=== PATIENT | male | born 1960 | race Two or more races ===

== ENCOUNTER 2021-02-15 01:26 | Inpatient (IN) | payer OTHER, SELFPAY ==
[2021-02-15] VITALS (13 sets, daily range): BP systolic 114–151; BP diastolic 61–85; PULSE 50–125; RESP 18–22; TEMP 36.1–38.1; O2SAT 91–98; BMI 30.4
--- NOTE | ~2021-02-15 | XR_ITS ---
EXAMINATION: XR CHEST CLINICAL INFORMATION: Dyspnea COMPARISON: 02/05/2019 TECHNIQUE: Frontal view of the chest was obtained. FINDINGS: The lungs are clear with no focal consolidation. No evidence of pneumothorax, pulmonary edema, or pleural effusions. The cardiomediastinal silhouette is unremarkable. No acute osseous findings. XR/XR chest 1V IMPRESSION: No acute cardiopulmonary findings.
--- NOTE | 2021-02-15 01:43 | ECG_ITS ---
Test Reason : DYSPNEA Blood Pressure : / mmHG Vent. Rate : 106 BPM Atrial Rate : 106 BPM P-R Int : 132 ms QRS Dur : 104 ms QT Int : 336 ms P-R-T Axes : 027 -45 074 degrees QTc Int : 446 ms Sinus tachycardia Intra-ventricular conduction delay Left anterior fascicular block Abnormal ECG When compared with ECG of 05-FEB-2019 03:59, Vent. rate has increased BY 45 BPM T wave inversion less evident in Lateral leads QRS duration has increased Referred By: Lalita Fairchild Electronically Signed By:RAYMUNDO ARAUJO MD
--- NOTE | 2021-02-15 02:01 | ED_ITS ---
HPI - Fever General Chief Complaint: Dyspnea Stated Complaint: Covid like Time Seen by Provider: 02/15/21 01:47 Source: patient and family Mode of arrival: ambulatory Limitations: no limitations History of Present Illness MD elicited complaint: fever and other (cough, body aches, wheezing) Pertinent past history: diabetes Onset (ago): day(s) (started on ) Context: recent antibiotic use (started on zpak on as well as prednisone taper at home from PCP) Exacerbating factors: exertion Relieving factors: acetaminophen Associated symptoms: chills, myalgias, cough, nausea and dysuria Treatments prior to arrival fever: acetaminophen Related Data Allergies Allergy/AdvReac Type Severity Reaction Status Date / Time No Known Allergies Allergy Verified 02/15/21 01:44 [No Known Allergies*] Review of Systems Review of Systems: Constitutional : No Weight loss, pos Fever, pos Chills, pos Fatigue, pos Malaise ENT/Mouth : No sore throat, No Rhinorrhea Eyes: No Eye Pain, No Swelling, No Redness Cardiovascular : No Chest Pain, pos SOB, No Dyspnea on Exertion, No Orthopnea, No Edema, No Palpitations Respiratory : pos Cough, No Sputum, pos Wheezing Gastrointestinal : pos Nausea, No Vomiting, No Diarrhea, No Constipation, No abdominal Pain, No Hematochezia, No Melena Genitourinary : pos Dysuria, No Urinary Frequency, No Hematuria, Musculoskeletal : No joint pain, No Myalgias, No Joint Swelling Skin : No Skin Lesions, No rash Neuro : pos Weakness, No Numbness, No Dizziness, No Headache Psych : No Anxiety/Panic, No Depression Heme/Lymph: No Bruising, No Bleeding,No Lymphadenopathy Endocrine : No Polyuria, No Polydipsia All other systems reviewed and are negative [facility] Past Medical History Attestation statement: The following information was validated with the patient. Medical History Asthma Diabetes High cholesterol Hypertension Pneumonia Social History Social History (Updated 02/15/21 @ 02:19 by Lalita Fairchild DO) Alcohol intake: never Patient Tobacco Use Status: Never used Tobacco Use of substances other than those prescribed or required for medical reasons: No Advance Directives: No Physical Exam Vital Signs: Vital Signs: Last Vital Signs Temp 100.1 F 02/15/21 02:23 Pulse 104 H 02/15/21 02:23 Resp 20 02/15/21 02:23 BP 119/78 02/15/21 02:23 Pulse Ox 91 L 02/15/21 03:32 Body Mass Index 30.4 Appearance: Alert. Oriented X3. Mild acute distress. Eyes: Pupils equal, round and reactive to light. ENT: Pharynx normal. Neck: Normal inspection. Neck supple. CVS: tachycardic heart rate and rhythm. Pulses normal. Respiratory: Mild respiratory distress tachypnea and retractions. Breath sounds diminished with diffuse end exp wheezing Abdomen: Soft and non-tender. Skin: Skin warm and dry. Normal skin color. Normal skin turgor. Extremities: No lower extremity edema. No calf ttp Neuro: Oriented X 3. No motor deficit. No sensory deficit. Course Course Course Narrative: 91% on RA already on steroids and zpak, up to 96% on 2L NC given failure of outpatient treatment of asthma with RSV will admit for further management after 5mg neb patient still wheezing + UA given rocephin empirically MDM - Fever MDM Narrative Medical decision making narrative: 61 yo male with DM, HTN, asthma not feeling well with fevers up to 103, cough, wheezing, he has been vaccinated x 2 with Moderna. PCP started him on prednisone and zpak last but overall he is not improving. At this time labs, cultures, lactic acid, CXR, FLU/COVID/RSV ordered, empiric ceftriaxone. Dispo per results and findings. Lab Data Result diagrams: 02/15/21 02:10 02/15/21 02:10 Labs: Lab Results 02/15/21 02/15/21 02/15/21 Range/Units 01:36 02:10 02:10 WBC 8.1 (4.8-10.8) X10*3/uL RBC 5.16 (4.60-5.80) X10*6/uL Hgb 16.1 (14.0-18.0) g/dl Hct 46.0 (42-52) % MCV 89.1 (80-98) fL MCH 31.2 (27.0-33.0) pg MCHC 35.0 (31.0-36.0) g/dl RDW 12.0 (11.0-16.0) % Plt Count 150 L (160-400) X10*3/uL MPV 9.2 L (9.4-12.4) fL Immature Gran % (Auto) 0.5 H (0.0-0.4) % Neut % (Auto) 91.5 H (45-73) % Lymph % (Auto) 6.2 L (20-40) % [place] % (Auto) 1.5 L (2-11) % Eos % (Auto) 0.1 (0-4) % Baso % (Auto) 0.2 (0-2) % Lymph # (Auto) 0.5 L (1.2-4.9) X10*3/uL [place] # (Auto) 0.1 (0.1-1.2) X10*3/uL Eos # (Auto) 0.0 (0.0-0.4) X10*3/uL Baso # (Auto) 0.0 (0.0-0.2) X10*3/uL Abs Immat Gran (auto) 0.04 H (0.00-0.03) X10*3/uL Absolute Neuts (auto) 7.4 (2.0-8.3) X10*3/uL Absolute Nucleated RBC 0.000 (0.0-0.012) X10*3/uL Nucleated RBC % (auto) 0.0 (0.0-0.2) /100WBC Smear Tech's Comments VERIFIED Sodium Cancelled Potassium Cancelled Chloride Cancelled Carbon Dioxide Cancelled Anion Gap Cancelled BUN Cancelled Creatinine Cancelled Estim Creat Clear Calc Cancelled Estimated GFR Cancelled Random Glucose Cancelled Lactic Acid (0.5-2.0) mmol/L Calcium Cancelled Magnesium (1.6-2.6) mg/dL Total Bilirubin (0.0-1.0) mg/dL Direct Bilirubin (0.0-0.5) mg/dL AST (5-37) U/L ALT (0-40) U/L Alkaline Phosphatase (39-117) U/L Troponin I High Sens (<3.5-35.0) ng/L B-Natriuretic Peptide (<100) pg/mL Total Protein (6.5-8.0) g/dL Albumin (3.5-5.0) g/dL Urine Color Urine Appearance Urine pH (5.0-8.0) Ur Specific [place] (1.005-1.025) Urine Protein (NEG-TRACE) MG/DL Urine Glucose (UA) (NEG) MG/DL Urine Ketones (NEG) MG/DL Urine Blood (NEG) Urine Nitrite (NEG) Ur Leukocyte Esterase (NEG) Urine RBC (0) /HPF Urine WBC (0-4) /HPF Ur Squamous Epith Cells /LPF Urine Bacteria /LPF Coronavirus (PCR) NEGATIVE (Negative) Influenza Type A (PCR) NEGATIVE (Negative) Influenza Type B (PCR) NEGATIVE (Negative) RSV RNA Qual (PCR) POSITIVE A (Negative) 02/15/21 02/15/21 02/15/21 Range/Units 02:10 02:10 02:10 WBC (4.8-10.8) X10*3/uL RBC (4.60-5.80) X10*6/uL Hgb (14.0-18.0) g/dl Hct (42-52) % MCV (80-98) fL MCH (27.0-33.0) pg MCHC (31.0-36.0) g/dl RDW (11.0-16.0) % Plt Count (160-400) X10*3/uL MPV (9.4-12.4) fL Immature Gran % (Auto) (0.0-0.4) % Neut % (Auto) (45-73) % Lymph % (Auto) (20-40) % [place] % (Auto) (2-11) % Eos % (Auto) (0-4) % Baso % (Auto) (0-2) % Lymph # (Auto) (1.2-4.9) X10*3/uL [place] # (Auto) (0.1-1.2) X10*3/uL Eos # (Auto) (0.0-0.4) X10*3/uL Baso # (Auto) (0.0-0.2) X10*3/uL Abs Immat Gran (auto) (0.00-0.03) X10*3/uL Absolute Neuts (auto) (2.0-8.3) X10*3/uL Absolute Nucleated RBC (0.0-0.012) X10*3/uL Nucleated RBC % (auto) (0.0-0.2) /100WBC Smear Tech's Comments Sodium 137 Potassium 3.5 Chloride 100 Carbon Dioxide 25 Anion Gap 16 BUN 15 Creatinine 1.17 Estim Creat Clear Calc 67.1 Estimated GFR > 60 Random Glucose 226 H Lactic Acid 2.0 (0.5-2.0) mmol/L Calcium 9.0 Magnesium 1.4 L* (1.6-2.6) mg/dL Total Bilirubin 2.3 H (0.0-1.0) mg/dL Direct Bilirubin 0.5 (0.0-0.5) mg/dL AST 18 (5-37) U/L ALT 34 (0-40) U/L Alkaline Phosphatase 84 (39-117) U/L Troponin I High Sens 7.8 (<3.5-35.0) ng/L B-Natriuretic Peptide 39 (<100) pg/mL Total Protein 6.8 (6.5-8.0) g/dL Albumin 4.1 (3.5-5.0) g/dL Urine Color Urine Appearance Urine pH (5.0-8.0) Ur Specific [place] (1.005-1.025) Urine Protein (NEG-TRACE) MG/DL Urine Glucose (UA) (NEG) MG/DL Urine Ketones (NEG) MG/DL Urine Blood (NEG) Urine Nitrite (NEG) Ur Leukocyte Esterase (NEG) Urine RBC (0) /HPF Urine WBC (0-4) /HPF Ur Squamous Epith Cells /LPF Urine Bacteria /LPF Coronavirus (PCR) (Negative) Influenza Type A (PCR) (Negative) Influenza Type B (PCR) (Negative) RSV RNA Qual (PCR) (Negative) 02/15/21 Range/Units 02:24 WBC (4.8-10.8) X10*3/uL RBC (4.60-5.80) X10*6/uL Hgb (14.0-18.0) g/dl Hct (42-52) % MCV (80-98) fL MCH (27.0-33.0) pg MCHC (31.0-36.0) g/dl RDW (11.0-16.0) % Plt Count (160-400) X10*3/uL MPV (9.4-12.4) fL Immature Gran % (Auto) (0.0-0.4) % Neut % (Auto) (45-73) % Lymph % (Auto) (20-40) % [place] % (Auto) (2-11) % Eos % (Auto) (0-4) % Baso % (Auto) (0-2) % Lymph # (Auto) (1.2-4.9) X10*3/uL [place] # (Auto) (0.1-1.2) X10*3/uL Eos # (Auto) (0.0-0.4) X10*3/uL Baso # (Auto) (0.0-0.2) X10*3/uL Abs Immat Gran (auto) (0.00-0.03) X10*3/uL Absolute Neuts (auto) (2.0-8.3) X10*3/uL Absolute Nucleated RBC (0.0-0.012) X10*3/uL Nucleated RBC % (auto) (0.0-0.2) /100WBC Smear Tech's Comments Sodium Potassium Chloride Carbon Dioxide Anion Gap BUN Creatinine Estim Creat Clear Calc Estimated GFR Random Glucose Lactic Acid (0.5-2.0) mmol/L Calcium Magnesium (1.6-2.6) mg/dL Total Bilirubin (0.0-1.0) mg/dL Direct Bilirubin (0.0-0.5) mg/dL AST (5-37) U/L ALT (0-40) U/L Alkaline Phosphatase (39-117) U/L Troponin I High Sens (<3.5-35.0) ng/L B-Natriuretic Peptide (<100) pg/mL Total Protein (6.5-8.0) g/dL Albumin (3.5-5.0) g/dL Urine Color YELLOW Urine Appearance CLEAR Urine pH 7.0 (5.0-8.0) Ur Specific [place] 1.020 (1.005-1.025) Urine Protein 1+ H (NEG-TRACE) MG/DL Urine Glucose (UA) 100 H (NEG) MG/DL Urine Ketones NEG (NEG) MG/DL Urine Blood NEG (NEG) Urine Nitrite POS H (NEG) Ur Leukocyte Esterase TRACE H (NEG) Urine RBC 1-4 (0) /HPF Urine WBC 30-49 H (0-4) /HPF Ur Squamous Epith Cells TRACE /LPF Urine Bacteria 4+ /LPF Coronavirus (PCR) (Negative) Influenza Type A (PCR) (Negative) Influenza Type B (PCR) (Negative) RSV RNA Qual (PCR) (Negative) ECG Data ECG #1: Attestation: I personally reviewed and interpreted this ECG as follows: ECG interpretation date: 02/15/21 ECG interpretation time: 02:01 Interpretation: Rate: 106 Rhythm: sinus tachycardia [place]: left, LVH Normal P waves. Normal GAVI. Normal QRS complex. ST T wave : inverted I and aVL, no SENA qTC: normal prior studies: no acute ischemia The study has been interpreted contemporaneously by me. . Critical Care Time Critical Care Time Critical Care Time: Yes Total Critical Care Time: 45 Attestation: 5mg neb, IV steroids, O2 supplementation, admission to hospital, reassessments, repletion of magnesium I attest to this time spent taking care of the patient Discharge Plan Discharge Clinical Impression: RSV (respiratory syncytial virus infection), Hypomagnesemia, Acute UTI Fever Qualifiers: Fever type: unspecified Qualified Code(s): R50.9 - Fever, unspecified Asthma Qualifiers: Asthma severity: moderate Asthma persistence: persistent Asthma complication type: with acute exacerbation Qualified Code(s): J45.41 - Moderate persistent asthma with (acute) exacerbation Patient Disposition: Admitted As Inpatient
[2021-02-15] MEDS: cefTRIAXone sodium 1 GM in 0.9 % Sodium Chloride 50 ML IV ×2 (02:15→19:54)
[2021-02-15] MEDS: dexAMETHasone sod phosphate 4 MG/ML VIAL 6 MG IVPUSH (02:15)
[2021-02-15] MEDS: Ibuprofen 600 MG TABLET PO (02:15)
[2021-02-15] MEDS: 0.9 % Sodium Chloride 500 ML IV (02:16)
[2021-02-15 02:18] LABS: Basophils Percent Auto 0.2 % (0-2); Eosinophils Percent Auto 0.1 % (0-4); Hemoglobin 16.1 g/dl (14.0-18.0); Imm Gran Abs Auto 0.04 X10*3/uL (0.00-0.03); Imm Gran Pct Auto 0.5 % (0.0-0.4); Lymphocytes Absolute Auto 0.5 X10*3/uL (1.2-4.9); Lymphocytes Percent Auto 6.2 % (20-40); MANUAL DIFF FLAG SCAN; Mean Corpuscular Hemoglobin 31.2 pg (27.0-33.0); Mean Corpuscular Volume 89.1 fL (80-98); Mean Platelet Volume 9.2 fL (9.4-12.4); Monocytes Absolute Auto 0.1 X10*3/uL (0.1-1.2); Monocytes Percent Auto 1.5 % (2-11); Neutrophils Absolute Auto 7.4 X10*3/uL (2.0-8.3); Neutrophils Percent Auto 91.5 % (45-73); Platelet Count 150 X10*3/uL (160-400); Red Blood Count 5.16 X10*6/uL (4.60-5.80); SCAN SMEAR FLAG 1; White Blood Count 8.1 X10*3/uL (4.8-10.8)
[2021-02-15] MEDS: Albuterol Sulfate (0.083%) 2.5 MG/3 ML VIAL.NEB 5 MG INHALE (02:19)
[2021-02-15 02:34] LABS: Influenza A PCR NEGATIVE (Negative); Influenza B PCR NEGATIVE (Negative); Resp Syncy Virus RNA Qual PCR POSITIVE (Negative); SARS COV2 PCR INHOUSE NEGATIVE (Negative)
[2021-02-15 02:35] LABS: SLIDE REVIEW VERIFIED
[2021-02-15 02:44] LABS: B Type Natriuretic Peptide 39 pg/mL (<100); Troponin-I High Sensitivity 7.8 ng/L (<3.5-35.0)
[2021-02-15 03:00] LABS: Alanine Aminotransferase 34 U/L (0-40); Albumin Level 4.1 g/dL (3.5-5.0); Alkaline Phosphatase 84 U/L (39-117); Anion Gap 16 (12-20); Aspartate Amino Transferase 18 U/L (5-37); Bilirubin Direct 0.5 mg/dL (0.0-0.5); Bilirubin Total 2.3 mg/dL (0.0-1.0); Blood Urea Nitrogen 15 mg/dL (9-16); Carbon Dioxide 25 mmol/L (22-29); Chloride 100 mmol/L (96-108); Creatinine Clr Calc Pharmacy 67.1; Estimated Glomerular Filt Rate > 60; Glucose Random 226 mg/dL (60-115); Magnesium 1.4 mg/dL (1.6-2.6); Potassium 3.5 mmol/L (3.3-5.1); Sodium 137 mmol/L (135-145); Total Protein 6.8 g/dL (6.5-8.0)
[2021-02-15 03:22] LABS: Appearance Urine CLEAR; Color Urine YELLOW; Glucose Urine UA 100 MG/DL (NEG); Leukocyte Esterase Urine TRACE (NEG); Nitrite Urine POS (NEG); UACC Culture Trigger YES; Urine Blood NEG (NEG); Urine Ketones NEG (NEG); Urine Protein 1+ MG/DL (NEG-TRACE)
[2021-02-15 03:28] LABS: WBC Urine 30-49 /HPF (0-4)
[2021-02-15 03:29] LABS: Bacteria Urine 4+ /LPF; Squamous Epithelial Cell Urine TRACE /LPF
--- NOTE | 2021-02-15 03:32 | PC.NURSE ---
patient is 91% on room air per dr. rand, placed on 2L of o2 by dr. rand
[2021-02-15] MEDS: Magnesium Sulfate/H2O 2 GM/50 ML PIGGYBACK IV (03:43)
--- NOTE | 2021-02-15 04:13 | PM.IMHP ---
History of Present Illness Date of Service: 02/15/21 Chief Complaint: Shortness of breath 59-year-old male with a past medical history of hypertension, asthma presented to the hospital with a chief complaint of fevers. Patient reports that for the past 1 week he has been having shortness of breath and has seen the PCP who gave him prednisone taper along with azithromycin. Patient reports that he did finished a course of Z-Carlito but he still did not feel well and has been having low-grade fevers and chills. Also complains of shortness of breath and dry cough. Over the past couple days patient also complains of having burning urination. Denies any abdominal pain. Denies any blood in the urine. Denies any chest pain or palpitations. Review of all other systems is negative except mentioned above ER course: Per ER team patient noted of coarse breath sounds; chest x-ray showed no acute findings; urinalysis abnormal consistent with UTI; patient was given nebulizations and steroids; patient came back positive for RSV; COVID-19 negative; EKG nonischemic; troponin negative. [facility] Medical History Asthma Diabetes High cholesterol Hypertension Pneumonia Pertinent family history: Reviewed, denies any chronic medical problems Social History (Updated 02/15/21 @ 02:19 by Lalita Fairchild DO) Alcohol intake: never Patient Tobacco Use Status: Never used Tobacco Use of substances other than those prescribed or required for medical reasons: No Advance Directives: No Meds Allergies Allergy/AdvReac Type Severity Reaction Status Date / Time No Known Allergies Allergy Verified 02/15/21 01:44 [No Known Allergies*] Active Medications: Current Medications Acetaminophen (Acetaminophen 325 Mg Tablet) 650 mg PO Q6H PRN PRN Reason: Pain, Mild (Pain Scale 1-3) Albuterol/Ipratropium (Albuterol/Iprat 2.5/0.5mg 3 Ml Ampul.Neb) 3 ml INHALE RQ4H PRN PRN Reason: Shortness of Breath/Wheezing Albuterol/Ipratropium (Albuterol/Iprat 2.5/0.5mg 3 Ml Ampul.Neb) 3 ml INHALE Q6H NEAL Azithromycin (Azithromycin 500 Mg Tablet) 500 mg PO Q24H NEAL Enoxaparin Sodium (Enoxaparin Sodium 40 Mg/0.4 Ml Syringe) 40 mg SUBCUT Q24H [facility] Magnesium Sulfate (Magnesium Sulfate/H2o) 2 gm in 50 mls @ 25 mls/hr IV ONCE ONE Stop: 02/15/21 04:59 Last Admin: 02/15/21 03:43 Dose: 25 mls/hr Documented by: Ceftriaxone Sodium 1 gm/ (Sodium Chloride) 50 mls @ 100 mls/hr IV Q24H [facility] Magnesium Sulfate/Dextrose (Magnesium Sulfate/D5w) 1 gm in 100 mls @ 100 mls/hr IV ONCE ONE Stop: 02/15/21 05:06 Melatonin (Melatonin 3 Mg Tablet) 6 mg PO BEDTIME PRN PRN Reason: Insomnia Methylprednisolone Sodium Succinate (Methylprednisolone Sod Succ 40 Mg/Ml Vial) 40 mg IVPUSH Q6H [facility] Pharmacy Consult (Consult Rx Perform Med Rec) 1 each MISCELLANE ONCE PRN PRN Reason: Consult order Senna (Sennosides 8.6 Mg Tablet) 17.2 mg PO BEDTIME PRN PRN Reason: Constipation Sodium Chloride (0.9 % Sodium Chloride Flush 3 Ml Syringe) 3 ml IVFLUSH QSHIFT [facility] Physical Exam Vital Signs and Narrative: Vital Signs: Last Vital Signs Temp 100.1 F 02/15/21 02:23 Pulse 104 H 02/15/21 02:23 Resp 20 02/15/21 02:23 BP 119/78 02/15/21 02:23 Pulse Ox 91 L 02/15/21 03:32 Body Mass Index 30.4 Gen: Appears be in no acute distress HEENT: NCAT, Moist mucosa. Pulmonary: Coarse breath sounds, fair air entry CVS: Normal S1-S2 Abdomen: BS+, Soft, Nontender; no CVA tenderness Extremities: Warm well perfused; Neuro: Alert and awake. Results Labs CBC and Chem 7: 02/15/21 02:10 02/15/21 02:10 Labs: Laboratory Results - last 24 hr 02/15/21 02/15/21 02/15/21 01:36 02:10 02:10 MCV 89.1 MCH 31.2 MCHC 35.0 RDW 12.0 Plt Count 150 L MPV 9.2 L Immature Gran % (Auto) 0.5 H Neut % (Auto) 91.5 H Lymph % (Auto) 6.2 L [place] % (Auto) 1.5 L Eos % (Auto) 0.1 Baso % (Auto) 0.2 Lymph # (Auto) 0.5 L [place] # (Auto) 0.1 Eos # (Auto) 0.0 Baso # (Auto) 0.0 Abs Immat Gran (auto) 0.04 H Absolute Neuts (auto) 7.4 Absolute Nucleated RBC 0.000 Nucleated RBC % (auto) 0.0 Smear Tech's Comments VERIFIED Anion Gap Cancelled Estim Creat Clear Calc Cancelled Estimated GFR Cancelled Random Glucose Cancelled Lactic Acid Calcium Cancelled Magnesium Total Bilirubin Direct Bilirubin AST ALT Alkaline Phosphatase Troponin I High Sens B-Natriuretic Peptide Total Protein Albumin Urine Color Urine Appearance Urine pH Ur Specific [place] Urine Protein Urine Glucose (UA) Urine Ketones Urine Blood Urine Nitrite Ur Leukocyte Esterase Urine RBC Urine WBC Ur Squamous Epith Cells Urine Bacteria Coronavirus (PCR) NEGATIVE Influenza Type A (PCR) NEGATIVE Influenza Type B (PCR) NEGATIVE RSV RNA Qual (PCR) POSITIVE A 02/15/21 02/15/21 02/15/21 02:10 02:10 02:10 MCV MCH MCHC RDW Plt Count MPV Immature Gran % (Auto) Neut % (Auto) Lymph % (Auto) [place] % (Auto) Eos % (Auto) Baso % (Auto) Lymph # (Auto) [place] # (Auto) Eos # (Auto) Baso # (Auto) Abs Immat Gran (auto) Absolute Neuts (auto) Absolute Nucleated RBC Nucleated RBC % (auto) Smear Tech's Comments Anion Gap 16 Estim Creat Clear Calc 67.1 Estimated GFR > 60 Random Glucose 226 H Lactic Acid 2.0 Calcium 9.0 Magnesium 1.4 L* Total Bilirubin 2.3 H Direct Bilirubin 0.5 AST 18 ALT 34 Alkaline Phosphatase 84 Troponin I High Sens 7.8 B-Natriuretic Peptide 39 Total Protein 6.8 Albumin 4.1 Urine Color Urine Appearance Urine pH Ur Specific [place] Urine Protein Urine Glucose (UA) Urine Ketones Urine Blood Urine Nitrite Ur Leukocyte Esterase Urine RBC Urine WBC Ur Squamous Epith Cells Urine Bacteria Coronavirus (PCR) Influenza Type A (PCR) Influenza Type B (PCR) RSV RNA Qual (PCR) 02/15/21 02:24 MCV MCH MCHC RDW Plt Count MPV Immature Gran % (Auto) Neut % (Auto) Lymph % (Auto) [place] % (Auto) Eos % (Auto) Baso % (Auto) Lymph # (Auto) [place] # (Auto) Eos # (Auto) Baso # (Auto) Abs Immat Gran (auto) Absolute Neuts (auto) Absolute Nucleated RBC Nucleated RBC % (auto) Smear Tech's Comments Anion Gap Estim Creat Clear Calc Estimated GFR Random Glucose Lactic Acid Calcium Magnesium Total Bilirubin Direct Bilirubin AST ALT Alkaline Phosphatase Troponin I High Sens B-Natriuretic Peptide Total Protein Albumin Urine Color YELLOW Urine Appearance CLEAR Urine pH 7.0 Ur Specific [place] 1.020 Urine Protein 1+ H Urine Glucose (UA) 100 H Urine Ketones NEG Urine Blood NEG Urine Nitrite POS H Ur Leukocyte Esterase TRACE H Urine RBC 1-4 Urine WBC 30-49 H Ur Squamous Epith Cells TRACE Urine Bacteria 4+ Coronavirus (PCR) Influenza Type A (PCR) Influenza Type B (PCR) RSV RNA Qual (PCR) Imaging Radiologist's Impressions: Impressions Chest X-Ray 02/15/21 01:43 IMPRESSION: No acute cardiopulmonary findings. Assessment and Plan (1) RSV (respiratory syncytial virus infection): Status: Acute (2) Acute UTI: Status: Acute (3) Asthma: Qualifiers: Asthma complication type: with acute exacerbation Asthma persistence: persistent Asthma severity: moderate Qualified Code(s): J45.41 - Moderate persistent asthma with (acute) exacerbation Status: Acute (4) Hypomagnesemia: Status: Acute (5) Fever: Qualifiers: Fever type: unspecified Qualified Code(s): R50.9 - Fever, unspecified Status: Acute 59-year-old male with a past medical history of HTN, HLD, DM, Asthma presented to the hospital with a chief complaint of fevers/shortness of breath. Admitted for asthma exacerbation/UTI/RSV infection. Asthma exacerbation/RSV infection: Condition Solu-Medrol DuoNeb standing and p.r.n. Supportive care Doxycycline UTI: Continue ceftriaxone. Follow up cultures. Hypomagnesemia: Repleted DM: ISS +lantus 20U HTN/HLD: c/w home meds For all other chronic issues, home medications will be continued DVT prophylaxis: Lovenox Code status: Full code Quality Stroke Does the patient have a stroke diagnosis?: No VTE Prior VTE?: No VTE Risk Level:: Medical - moderate - high VTE Device Contraindication: Treatment Not Indicated VTE Drug Contraindication: N/A - Med Ordered
[2021-02-15 04:33] LABS: Troponin-I High Sensitivity 7.8 ng/L (<3.5-35.0)
[2021-02-15] MEDS: Benzonatate 100 MG CAPSULE PO ×2 (06:11→19:54)
[2021-02-15] MEDS: Enoxaparin Sodium 40 MG/0.4 ML SYRINGE SUBCUT (06:11)
[2021-02-15 07:11] LABS: Glucose, Whole Blood 280 mg/dL (60-115)
[2021-02-15] MEDS: Insulin Lispro 100 UNIT/ML 3 ML VIAL SUBCUT ×4 (07:15→19:53)
[2021-02-15] MEDS: 0.9 % Sodium Chloride Flush 3 ML SYRINGE IVFLUSH ×3 (07:16→19:54)
--- NOTE | 2021-02-15 07:20 | PC.NURSE ---
pt alert and oriented, skin appropriate for ethnicity, respirations even and unlabored but audible wheezing, pt reports chest tightness/pain at 6/10 especially when coughing, ns on the monitor, vs stable
--- NOTE | 2021-02-15 07:26 | PC.NURSE ---
report given to Kirsty ceballos on imc
[2021-02-15 08:11] LABS: Basophils Percent Auto 0.2 % (0-2); Hematocrit 44.3 % (42-52); Hemoglobin 15.5 g/dl (14.0-18.0); Imm Gran Abs Auto 0.08 X10*3/uL (0.00-0.03); Imm Gran Pct Auto 0.6 % (0.0-0.4); Lymphocytes Absolute Auto 0.4 X10*3/uL (1.2-4.9); Lymphocytes Percent Auto 3.1 % (20-40); MANUAL DIFF FLAG SCAN; Mean Corpuscular Hemoglobin 31.3 pg (27.0-33.0); Mean Corpuscular Volume 89.3 fL (80-98); Mean Platelet Volume 9.4 fL (9.4-12.4); Monocytes Absolute Auto 0.5 X10*3/uL (0.1-1.2); Monocytes Percent Auto 3.5 % (2-11); Neutrophils Absolute Auto 12.1 X10*3/uL (2.0-8.3); Neutrophils Percent Auto 92.6 % (45-73); Platelet Count 151 X10*3/uL (160-400); Red Blood Count 4.96 X10*6/uL (4.60-5.80); Red Cell Distribution Width 12.2 % (11.0-16.0); SCAN SMEAR FLAG 1
--- NOTE | 2021-02-15 08:28 | MHC.CM.PN ---
pt lives c his in their home. he reports that he is independent in his care. 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 pt denies the need for vna svcs at or. pt's can help him c any needs he may have. this will include a ride home at or. dc plan is home no svcs. cm to cont. to follow.
--- NOTE | 2021-02-15 08:33 | PHA.MEDREC ---
Pharmacy Consult ? Medication Reconciliation Pharmacy has completed the medication reconciliation. Spoke to the patient who stated he finished his azithromycin prescription on Tuesday 02/13 and is still taking the Prednisone taper. The patient also receives Xolair every 2 weeks, he is due next Saturday.
[2021-02-15 08:44] LABS: Anion Gap 15 (12-20); Blood Urea Nitrogen 15 mg/dL (9-16); Calcium 9.1 mg/dL (8.4-10.2); Carbon Dioxide 28 mmol/L (22-29); Chloride 98 mmol/L (96-108); Creatinine Clr Calc Pharmacy 58.6; Estimated Glomerular Filt Rate 54; Glucose Random 382 mg/dL (60-115); Potassium 4.7 mmol/L (3.3-5.1); Sodium 136 mmol/L (135-145)
[2021-02-15] MEDS: methylPREDNISolone Sod Succ 40 MG/ML VIAL IVPUSH ×3 (09:15→19:53)
[2021-02-15] MEDS: Albuterol/Iprat 2.5/0.5MG 3 ML AMPUL.NEB INHALE ×2 (10:47→17:42)
[2021-02-15 11:06] LABS: Glucose, Whole Blood 286 mg/dL (60-115)
[2021-02-15 16:05] LABS: Glucose, Whole Blood 307 mg/dL (60-115)
[2021-02-15 19:39] LABS: Glucose, Whole Blood 351 mg/dL (60-115)
[2021-02-15] MEDS: Insulin Glargine,Hum.rec.anlog 100 UNIT/ML 10 ML VIAL 20 UNIT SUBCUT (19:53)
[2021-02-15] MEDS: Acetaminophen 325 MG TABLET 650 MG PO (19:53)
[2021-02-16] VITALS (10 sets, daily range): BP systolic 125–162; BP diastolic 67–84; PULSE 63–101; RESP 18–20; TEMP 36.1–37.2; O2SAT 94–99
[2021-02-16] MEDS: Albuterol/Iprat 2.5/0.5MG 3 ML AMPUL.NEB INHALE ×3 (00:16→17:59)
[2021-02-16] MEDS: methylPREDNISolone Sod Succ 40 MG/ML VIAL IVPUSH ×4 (05:58→21:27)
[2021-02-16] MEDS: Enoxaparin Sodium 40 MG/0.4 ML SYRINGE SUBCUT (05:58)
[2021-02-16 06:08] LABS: Hematocrit 42.2 % (42-52); Hemoglobin 14.9 g/dl (14.0-18.0); Mean Corpuscular HGB Conc 35.3 g/dl (31.0-36.0); Mean Corpuscular Hemoglobin 31.1 pg (27.0-33.0); Mean Corpuscular Volume 88.1 fL (80-98); Mean Platelet Volume 9.5 fL (9.4-12.4); Platelet Count 167 X10*3/uL (160-400); Red Blood Count 4.79 X10*6/uL (4.60-5.80); White Blood Count 19.6 X10*3/uL (4.8-10.8)
[2021-02-16] MEDS: Fluticasone/Vilanterol 200/25 BLST.W.DEV 1 PUFF INHALE (06:09)
[2021-02-16 06:30] LABS: Anion Gap 13 (12-20); Blood Urea Nitrogen 24 mg/dL (9-16); Carbon Dioxide 27 mmol/L (22-29); Chloride 100 mmol/L (96-108); Creatinine Clr Calc Pharmacy 80.2; Estimated Glomerular Filt Rate > 60; Glucose Fasting 296 mg/dL (60-99); Magnesium 2.4 mg/dL (1.6-2.6); Potassium 4.3 mmol/L (3.3-5.1); Sodium 136 mmol/L (135-145)
[2021-02-16 07:28] LABS: Glucose, Whole Blood 338 mg/dL (60-115)
[2021-02-16] MEDS: Insulin Lispro 100 UNIT/ML 3 ML VIAL SUBCUT ×7 (07:45→20:24)
[2021-02-16] MEDS: Atorvastatin Calcium 40 MG TABLET PO (07:46)
[2021-02-16] MEDS: Benzonatate 100 MG CAPSULE PO ×2 (07:46→21:33)
[2021-02-16] MEDS: Acetaminophen 325 MG TABLET 650 MG PO (07:46)
[2021-02-16] MEDS: lisinopriL 40 MG TABLET PO (07:46)
[2021-02-16] MEDS: 0.9 % Sodium Chloride Flush 3 ML SYRINGE IVFLUSH ×2 (07:47→16:42)
[2021-02-16] MEDS: Throat Lozenge, Medicated LOZENGE 1 LOZENGE MUCOUS MEM ×3 (10:40→21:33)
--- NOTE | 2021-02-16 11:28 | P.CDIC_ITS ---
CDI Concurrent Query Documentation Clarification: PHYSICIAN'S DOCUMENTATION REQUEST Date of Query: 02/16/21 1129 Patient Name: Edinson Marrero Admit Date: 02/15/21 Dear Doctor, A review of the medical record indicates additional documentation may be needed. Please review below and update the documentation accordingly. Risk Factors/Clinical Indicators/Treatments HR 125 RR 22 Temp 100.6 LA 2.0 WBC 19.6 SOB, chills, malaise, coughing, tachypnea, tachycardic. Admit for RSV and UTI IV Ceftriaxone, Doxycycline, Albuterol Patient just finished course of Z pack prior to arrival. Based on the above, could you clarify in the Progress Notes the appropriate diagnosis, if significant, that supports the above abnormalities and additional evaluation, monitoring, and/or treatment rendered: * Sepsis due to RSV and/or UTI * Not treating Sepsis * Labs indicate a diagnosis of (please specify) * Other (please specify) * Unable to determine Use of terms such as suspected, likely, concern for, or probable (associated with a specific diagnosis that is being evaluated, monitored, or treated as if it exists) are acceptable and can be coded in the inpatient setting, when documented at the time of discharge. Thank you, Wendy Boyer Extension: [phone] Please use your independent medical judgment in providing your response. THIS QUERY IS PART OF THE PERMANENT MEDICAL RECORD Provider Response: Sepsis
[2021-02-16 11:31] LABS: Glucose, Whole Blood 350 mg/dL (60-115)
--- NOTE | 2021-02-16 11:58 | P.PNIM_ITS ---
Subjective Subjective Date of Service: 02/16/21 Interval History: cc: sob interval history: a bit better, still weak and sob Cardiovascular Cardiovascular: Reports no additional cardiovascular complaints Respiratory Respiratory: Reports no additional respiratory complaints Physical Exam Vital Signs: Vital Signs: Last Vital Signs Temp 98.3 F 02/16/21 07:28 Pulse 100 02/16/21 07:46 Resp 19 02/16/21 07:28 BP 136/76 02/16/21 07:46 Pulse Ox 97 02/16/21 07:28 Body Mass Index 30.4 General: AO X 3, fatigued appearing Resp: wheezes bilateral, no accessory muscles used CVS: S1,S2,RRR GI: soft, non tender, non distended Neuro: motor grossly intact, alert Psych: appropriate affect, appropriate insight Objective Data Active Medications Acetaminophen (Acetaminophen 325 Mg Tablet) 650 mg PO Q6H PRN PRN Reason: Pain, Mild (Pain Scale 1-3) Last Admin: 02/16/21 07:46 Dose: 650 mg Documented by: GARRETT Albuterol/Ipratropium (Albuterol/Iprat 2.5/0.5mg 3 Ml Ampul.Neb) 3 ml INHALE RQ4H PRN PRN Reason: Shortness of Breath/Wheezing Albuterol/Ipratropium (Albuterol/Iprat 2.5/0.5mg 3 Ml Ampul.Neb) 3 ml INHALE R Q6H [facility] Last Admin: 02/16/21 06:06 Dose: 3 ml Documented by: JEWEL Atorvastatin Calcium (Atorvastatin Calcium 40 Mg Tablet) 40 mg PO DAILY [facility] Last Admin: 02/16/21 07:46 Dose: 40 mg Documented by: GARRETT Benzocaine (Throat Lozenge, Medicated Lozenge) 1 lozenge MUCOUS MEM Q2H PRN PRN Reason: Sore Throat Last Admin: 02/16/21 10:40 Dose: 1 lozenge Documented by: GARRETT Benzonatate (Benzonatate 100 Mg Capsule) 100 mg PO TID PRN PRN Reason: Cough Last Admin: 02/16/21 07:46 Dose: 100 mg Documented by: GARRETT Dextrose (Dextrose 50 % 25 Gm/50 Ml Vial) 25 gm IVPUSH Q15M PRN; Protocol PRN Reason: per Hypoglycemia Standing Ord. Enoxaparin Sodium (Enoxaparin Sodium 40 Mg/0.4 Ml Syringe) 40 mg SUBCUT Q24H [facility] Last Admin: 02/16/21 05:58 Dose: 40 mg Documented by: RALPH Fluticasone/Vilanterol (Fluticasone/Vilanterol 200/25 Blst.W.Dev) 1 puff INHALE DAILY [facility] Last Admin: 02/16/21 06:09 Dose: 1 puff Documented by: JEWEL Glucose (Glucose Gel 15 Gm Gel..Gram.) 15 gm PO Q15M PRN; Protocol PRN Reason: per Hypoglycemia Standing Ord. Ceftriaxone Sodium 1 gm/ (Sodium Chloride) 50 mls @ 100 mls/hr IV Q24H [facility] Last Infusion: 02/15/21 20:39 Dose: 0 mls/hr Documented by: RALPH Insulin Glargine (Insulin Glargine,Hum.Rec.Anlog 100 Unit/Ml 10 Ml Vial) 35 unit SUBCUT BEDTIME [facility] Insulin Human Lispro (Insulin Lispro 100 Unit/Ml 3 Ml Vial) 0 unit SUBCUT QIDACHS [facility]; Protocol Last Admin: 02/16/21 11:44 Dose: 8 unit Documented by: GARRETT Insulin Human Lispro (Insulin Lispro 100 Unit/Ml 3 Ml Vial) 5 unit SUBCUT QIDACHS [facility] Last Admin: 02/16/21 11:44 Dose: 5 unit Documented by: GARRETT Lisinopril (Lisinopril 40 Mg Tablet) 40 mg PO DAILY [facility]; Protocol Last Admin: 02/16/21 07:46 Dose: 40 mg Documented by: GARRETT Melatonin (Melatonin 3 Mg Tablet) 6 mg PO BEDTIME PRN PRN Reason: Insomnia Methylprednisolone Sodium Succinate (Methylprednisolone Sod Succ 40 Mg/Ml Vial) 40 mg IVPUSH Q6H [facility] Last Admin: 02/16/21 10:40 Dose: 40 mg Documented by: GARRETT Pharmacy Consult (Consult Rx Perform Med Rec) 1 each MISCELLANE ONCE PRN PRN Reason: Consult order Senna (Sennosides 8.6 Mg Tablet) 17.2 mg PO BEDTIME PRN PRN Reason: Constipation Sodium Chloride (0.9 % Sodium Chloride Flush 3 Ml Syringe) 3 ml IVFLUSH QSHIFT [facility] Last Admin: 02/16/21 07:47 Dose: 3 ml Documented by: GARRETT Labs CBC & Chem 7: 02/16/21 05:52 02/16/21 05:52 Labs: Laboratory Results - last 24 hr 02/15/21 02/15/21 02/16/21 15:58 19:35 05:52 MCV 88.1 MCH 31.1 MCHC 35.3 RDW 12.0 Plt Count 167 MPV 9.5 Absolute Nucleated RBC 0.000 Nucleated RBC % (auto) 0.0 Anion Gap Estim Creat Clear Calc Estimated GFR POC Glucose 307 H 351 H* Fasting Glucose Calcium Magnesium 02/16/21 02/16/21 02/16/21 05:52 07:23 11:27 MCV MCH MCHC RDW Plt Count MPV Absolute Nucleated RBC Nucleated RBC % (auto) Anion Gap 13 Estim Creat Clear Calc 80.2 Estimated GFR > 60 POC Glucose 338 H 350 H* Fasting Glucose 296 H Calcium 9.0 Magnesium 2.4 Microbiology Microbiology Results: Microbiology 02/15/21 Unknown Urine Culture - Preliminary Urine clean catch - Urine silverio top Gram negative neha 02/15/21 02:10 Blood Culture - Preliminary Blood - Venous No growth after 24 hours. 02/15/21 02:10 Blood Culture - Preliminary Blood - Venous No growth after 24 hours. Assessment and Plan (1) RSV (respiratory syncytial virus infection): Status: Acute (2) Asthma: Status: Acute Assessment and Plan: 61M presented sob sepsis present on admission due to UTI and RSV complicated by acute exacerbation of mild intermittent asthma continue steroids, bronchodilators breo rocephin, follow up cultures - urine growing gnr ? underlying BPH - outpatient follow up DM with hyperglycemia basal bolus insulin monitor poc htn lisinpril hld statin dvt prohpylaxis - lovenox Quality Stroke Does the patient have a stroke diagnosis?: No VTE Prior VTE?: No VTE Risk Level:: Medical - moderate - high VTE Device Contraindication: Treatment Not Indicated VTE Drug Contraindication: N/A - Med Ordered
[2021-02-16 16:10] LABS: Glucose, Whole Blood 327 mg/dL (60-115)
[2021-02-16 20:00] LABS: Glucose, Whole Blood 302 mg/dL (60-115)
[2021-02-16] MEDS: Insulin Glargine,Hum.rec.anlog 100 UNIT/ML 10 ML VIAL 35 UNIT SUBCUT (20:24)
[2021-02-16] MEDS: cefTRIAXone sodium 1 GM in 0.9 % Sodium Chloride 50 ML IV (21:27)
[2021-02-17] VITALS (10 sets, daily range): BP systolic 137–163; BP diastolic 63–88; PULSE 60–88; RESP 17–20; TEMP 36.3–37.2; O2SAT 94–98
[2021-02-17] MEDS: Albuterol/Iprat 2.5/0.5MG 3 ML AMPUL.NEB INHALE ×2 (00:08→07:36)
[2021-02-17] MEDS: 0.9 % Sodium Chloride Flush 3 ML SYRINGE IVFLUSH ×4 (00:54→20:34)
[2021-02-17] MEDS: Enoxaparin Sodium 40 MG/0.4 ML SYRINGE SUBCUT (04:54)
[2021-02-17] MEDS: Acetaminophen 325 MG TABLET 650 MG PO (04:55)
[2021-02-17] MEDS: methylPREDNISolone Sod Succ 40 MG/ML VIAL IVPUSH ×4 (04:56→20:33)
[2021-02-17 07:21] LABS: Glucose, Whole Blood 297 mg/dL (60-115)
[2021-02-17] MEDS: Fluticasone/Vilanterol 200/25 BLST.W.DEV 1 PUFF INHALE (07:36)
[2021-02-17 07:47] LABS: Alanine Aminotransferase 21 U/L (0-40); Albumin Level 3.7 g/dL (3.5-5.0); Alkaline Phosphatase 76 U/L (39-117); Aspartate Amino Transferase 11 U/L (5-37); Bilirubin Direct 0.4 mg/dL (0.0-0.5); Total Protein 6.2 g/dL (6.5-8.0)
[2021-02-17] MEDS: Insulin Lispro 100 UNIT/ML 3 ML VIAL SUBCUT ×8 (08:10→20:33)
[2021-02-17] MEDS: Atorvastatin Calcium 40 MG TABLET PO (08:11)
[2021-02-17] MEDS: lisinopriL 40 MG TABLET PO (08:11)
[2021-02-17] MEDS: Benzonatate 100 MG CAPSULE PO (08:13)
[2021-02-17 11:27] LABS: Glucose, Whole Blood 346 mg/dL (60-115)
--- NOTE | 2021-02-17 12:11 | P.PNIM_ITS ---
Subjective Subjective Date of Service: 02/17/21 Interval History: cc: sob interval history: continues to feel a bit better, still weak and sob Cardiovascular Cardiovascular: Reports no additional cardiovascular complaints Respiratory Respiratory: Reports no additional respiratory complaints Physical Exam Vital Signs: Vital Signs: Last Vital Signs Temp 98.5 F 02/17/21 07:13 Pulse 88 02/17/21 08:11 Resp 17 02/17/21 07:13 BP 146/77 H 02/17/21 08:11 Pulse Ox 95 02/17/21 07:13 Body Mass Index 30.4 General: AO X 3, fatigued appearing Resp:? wheezes bilateral, no accessory muscles used CVS: S1,S2,RRR GI: soft, non tender, non distended Neuro:? motor grossly intact, alert Psych: appropriate affect, appropriate insight? Objective Data Active Medications Acetaminophen (Acetaminophen 325 Mg Tablet) 650 mg PO Q6H PRN PRN Reason: Pain, Mild (Pain Scale 1-3) Last Admin: 02/17/21 04:55 Dose: 650 mg Documented by: FLOR Albuterol/Ipratropium (Albuterol/Iprat 2.5/0.5mg 3 Ml Ampul.Neb) 3 ml INHALE RQ4H PRN PRN Reason: Shortness of Breath/Wheezing Albuterol/Ipratropium (Albuterol/Iprat 2.5/0.5mg 3 Ml Ampul.Neb) 3 ml INHALE 0200,0800,1400,2000 [facility], [facility] Last Admin: 02/17/21 07:36 Dose: 3 ml Documented by: SOLO Atorvastatin Calcium (Atorvastatin Calcium 40 Mg Tablet) 40 mg PO DAILY [facility], [facility] Last Admin: 02/17/21 08:11 Dose: 40 mg Documented by: JUAN CARLOS Benzocaine (Throat Lozenge, Medicated Lozenge) 1 lozenge MUCOUS MEM Q2H PRN PRN Reason: Sore Throat Last Admin: 02/16/21 21:33 Dose: 1 lozenge Documented by: AIMEE Benzonatate (Benzonatate 100 Mg Capsule) 100 mg PO TID PRN PRN Reason: Cough Last Admin: 02/17/21 08:13 Dose: 100 mg Documented by: JUAN CARLOS Dextrose (Dextrose 50 % 25 Gm/50 Ml Vial) 25 gm IVPUSH Q15M PRN; Protocol PRN Reason: per Hypoglycemia Standing Ord. Enoxaparin Sodium (Enoxaparin Sodium 40 Mg/0.4 Ml Syringe) 40 mg SUBCUT Q24H [facility], [facility] Last Admin: 02/17/21 04:54 Dose: 40 mg Documented by: FLOR Fluticasone/Vilanterol (Fluticasone/Vilanterol 200/25 Blst.W.Dev) 1 puff INHALE DAILY [facility], [facility] Last Admin: 02/17/21 07:36 Dose: 1 puff Documented by: SOLO Glucose (Glucose Gel 15 Gm Gel..Gram.) 15 gm PO Q15M PRN; Protocol PRN Reason: per Hypoglycemia Standing Ord. Ceftriaxone Sodium 1 gm/ (Sodium Chloride) 50 mls @ 100 mls/hr IV Q24H [facility], [facility] Last Infusion: 02/16/21 22:41 Dose: 0 mls/hr Documented by: AIMEE Insulin Glargine (Insulin Glargine,Hum.Rec.Anlog 100 Unit/Ml 10 Ml Vial) 35 unit SUBCUT BEDTIME [facility], [facility] Last Admin: 02/16/21 20:24 Dose: 35 unit Documented by: AIMEE Insulin Human Lispro (Insulin Lispro 100 Unit/Ml 3 Ml Vial) 0 unit SUBCUT QIDACHS [facility], [facility]; Protocol Last Admin: 02/17/21 11:55 Dose: 8 unit Documented by: SYDNEE Insulin Human Lispro (Insulin Lispro 100 Unit/Ml 3 Ml Vial) 5 unit SUBCUT QIDACHS [facility], [facility] Last Admin: 02/17/21 12:04 Dose: 5 unit Documented by: SYDNEE Lisinopril (Lisinopril 40 Mg Tablet) 40 mg PO DAILY [facility], [facility]; Protocol Last Admin: 02/17/21 08:11 Dose: 40 mg Documented by: JUAN CARLOS Melatonin (Melatonin 3 Mg Tablet) 6 mg PO BEDTIME PRN PRN Reason: Insomnia Methylprednisolone Sodium Succinate (Methylprednisolone Sod Succ 40 Mg/Ml Vial) 40 mg IVPUSH Q6H [facility], [facility] Last Admin: 02/17/21 11:55 Dose: 40 mg Documented by: SYDNEE Pharmacy Consult (Consult Rx Perform Med Rec) 1 each MISCELLANE ONCE PRN PRN Reason: Consult order Senna (Sennosides 8.6 Mg Tablet) 17.2 mg PO BEDTIME PRN PRN Reason: Constipation Sodium Chloride (0.9 % Sodium Chloride Flush 3 Ml Syringe) 3 ml IVFLUSH QSHIFT [facility], [facility] Last Admin: 02/17/21 08:16 Dose: 3 ml Documented by: JUAN CARLOS Labs CBC & Chem 7: 02/16/21 05:52 02/16/21 05:52 Labs: Laboratory Results - last 24 hr 02/16/21 02/16/21 02/17/21 15:57 19:56 06:46 POC Glucose 327 H 302 H Total Bilirubin 1.0 Direct Bilirubin 0.4 AST 11 ALT 21 Alkaline Phosphatase 76 Total Protein 6.2 L Albumin 3.7 02/17/21 02/17/21 07:16 11:11 POC Glucose 297 H 346 H Total Bilirubin Direct Bilirubin AST ALT Alkaline Phosphatase Total Protein Albumin Microbiology Microbiology Results: Microbiology 02/15/21 Unknown Urine Culture - Final Urine clean catch - Urine silverio top Escherichia coli 02/15/21 02:10 Blood Culture - Preliminary Blood - Venous No growth after 48 hours. 02/15/21 02:10 Blood Culture - Preliminary Blood - Venous No growth after 48 hours. Assessment and Plan (1) RSV (respiratory syncytial virus infection): Status: Acute (2) Asthma: Status: Acute Assessment and Plan: 61M presented sob severe sepsis present on admission due to UTI and RSV complicated by acute exacerbation of mild intermittent asthma continue steroids, bronchodilators breo rocephin, urine growing pansensitive ecoli ? underlying BPH - outpatient follow up improved but still fairly weak and sob, if continues to improve will likely dc tomorrow DM with hyperglycemia basal bolus insulin, increase lantus to 44units monitor poc htn lisinpril hld statin dvt prohpylaxis - lovenox Quality Stroke Does the patient have a stroke diagnosis?: No VTE Prior VTE?: No VTE Risk Level:: Medical - moderate - high VTE Device Contraindication: Treatment Not Indicated VTE Drug Contraindication: N/A - Med Ordered
[2021-02-17 16:03] LABS: Glucose, Whole Blood 353 mg/dL (60-115)
[2021-02-17 19:50] LABS: Glucose, Whole Blood 340 mg/dL (60-115)
[2021-02-17] MEDS: cefTRIAXone sodium 1 GM in 0.9 % Sodium Chloride 50 ML IV (20:34)
[2021-02-17] MEDS: Insulin Glargine,Hum.rec.anlog 100 UNIT/ML 10 ML VIAL 44 UNIT SUBCUT (20:34)
[2021-02-18 03:12] VITALS: BP 140/82; PULSE 63; RESP 12; TEMP 36.2; O2SAT 93
[2021-02-18] MEDS: methylPREDNISolone Sod Succ 40 MG/ML VIAL IVPUSH ×2 (05:22→10:12)
[2021-02-18] MEDS: Enoxaparin Sodium 40 MG/0.4 ML SYRINGE SUBCUT (05:22)
[2021-02-18 06:55] LABS: Hematocrit 43.3 % (42-52); Hemoglobin 14.8 g/dl (14.0-18.0); Mean Corpuscular HGB Conc 34.2 g/dl (31.0-36.0); Mean Corpuscular Hemoglobin 30.6 pg (27.0-33.0); Mean Corpuscular Volume 89.6 fL (80-98); Mean Platelet Volume 9.6 fL (9.4-12.4); Platelet Count 191 X10*3/uL (160-400); Red Blood Count 4.83 X10*6/uL (4.60-5.80); Red Cell Distribution Width 12.2 % (11.0-16.0); White Blood Count 16.9 X10*3/uL (4.8-10.8)
[2021-02-18 07:21] LABS: Anion Gap 17 (12-20); Blood Urea Nitrogen 25 mg/dL (9-16); Calcium 8.9 mg/dL (8.4-10.2); Carbon Dioxide 25 mmol/L (22-29); Chloride 99 mmol/L (96-108); Creatinine Clr Calc Pharmacy 78.6; Estimated Glomerular Filt Rate > 60; Glucose Fasting 247 mg/dL (60-99); Potassium 4.6 mmol/L (3.3-5.1); Sodium 136 mmol/L (135-145)
[2021-02-18 07:24] VITALS: BP 144/83; PULSE 63; RESP 20; TEMP 36.6; O2SAT 94
[2021-02-18 07:58] LABS: Glucose, Whole Blood 258 mg/dL (60-115)
[2021-02-18] MEDS: Insulin Lispro 100 UNIT/ML 3 ML VIAL SUBCUT ×4 (08:05→12:02)
[2021-02-18 08:08] VITALS: PULSE 63; O2SAT 96
[2021-02-18] MEDS: Albuterol/Iprat 2.5/0.5MG 3 ML AMPUL.NEB INHALE (08:08)
[2021-02-18] MEDS: Fluticasone/Vilanterol 200/25 BLST.W.DEV 1 PUFF INHALE (08:08)
[2021-02-18] MEDS: Atorvastatin Calcium 40 MG TABLET PO (10:11)
[2021-02-18 10:12] VITALS: BP 144/84; PULSE 84
[2021-02-18] MEDS: 0.9 % Sodium Chloride Flush 3 ML SYRINGE IVFLUSH (10:12)
[2021-02-18] MEDS: lisinopriL 40 MG TABLET PO (10:12)
--- NOTE | 2021-02-18 10:37 | PM.DS ---
DS: Providers Provider Date of Service: 02/18/21 Date of admission: 02/15/21 03:50 Primary care physician: Unknown Physician DS: Diagnosis Discharge Diagnosis (1) RSV (respiratory syncytial virus infection): Status: Acute (2) Asthma: Status: Acute (3) Acute UTI: Status: Acute (4) Severe sepsis: Status: Acute DS: Summary Hospital Course Hospital Course: Patient was admitted for severe sepsis due to urinary tract infection associated with urinary retention and RSV complicated by acute exacerbation of mild intermittent asthma. He was treated with steroids and bronchodilators for the asthma exacerbation. His respiratory symptoms improved over next few days and he will be discharged on 5 more days of prednisone. For urinary tract infection this was likely due to BPH causing urinary retention. He will be started on Flomax and refer to Urology. He was treated with ceftriaxone, urine culture grew out pansensitive E coli, he will have 5 more days of cefuroxime. Patient is now feeling much better will be discharged home. Time Spent with Patient Time attestation: Total time spent providing and/or coordinating discharge services: Discharge coordination time: Greater than 30 minutes Quality: Stroke Does the patient have a stroke diagnosis?: No Physical Exam Vital Signs: Vital Signs: Last Vital Signs Temp 97.8 F 02/18/21 07:24 Pulse 84 02/18/21 10:12 Resp 20 02/18/21 07:24 BP 144/84 H 02/18/21 10:12 Pulse Ox 94 02/18/21 07:24 Body Mass Index 30.4 General: AO X 3, no acute distress Resp: mild wheezes bilateral, no accessory muscles used CVS: S1,S2,RRR GI: soft, non tender, non distended Neuro: motor grossly intact, alert Psych: appropriate affect, appropriate insight DS: Data Data Completed and Pending Labs on day of discharge: Laboratory Results - last 24 hr 02/17/21 02/17/21 02/17/21 11:11 15:54 19:41 WBC RBC Hgb Hct MCV MCH MCHC RDW Plt Count MPV Absolute Nucleated RBC Nucleated RBC % (auto) Sodium Potassium Chloride Carbon Dioxide Anion Gap BUN Creatinine Estim Creat Clear Calc Estimated GFR POC Glucose 346 H 353 H* 340 H Fasting Glucose Calcium 02/18/21 02/18/21 02/18/21 06:32 06:32 07:21 WBC 16.9 H RBC 4.83 Hgb 14.8 Hct 43.3 MCV 89.6 MCH 30.6 MCHC 34.2 RDW 12.2 Plt Count 191 MPV 9.6 Absolute Nucleated RBC 0.000 Nucleated RBC % (auto) 0.0 Sodium 136 Potassium 4.6 Chloride 99 Carbon Dioxide 25 Anion Gap 17 BUN 25 H Creatinine 1.00 Estim Creat Clear Calc 78.6 Estimated GFR > 60 POC Glucose 258 H Fasting Glucose 247 H Calcium 8.9 Preliminary micro results at discharge 02/15/21 02:10 Blood Culture - Preliminary Blood - Venous No growth after 48 hours. 02/15/21 02:10 Blood Culture - Preliminary Blood - Venous No growth after 48 hours. Discharge Plan Discharge Patient Disposition: Home, Self-Care Discharge Diagnosis: sepsis, uti, rsv, asthma, urinary retention Referrals: Ross Kevin MD [Physician] - 1 Week (urinary retention, recent UTI) Physician,Vickie Sweet [Primary Care Provider] - 1 Week Discharge Medications: New tamsulosin 0.4 mg Capsule 0.4 mg PO BEDTIME Qty: 30 RF: 0 cefuroxime axetil 500 mg tablet 500 mg PO Q12H Qty: 10 RF: 0 prednisone 20 mg tablet 40 mg PO DAILY Qty: 10 RF: 0 Continued atorvastatin 40 mg tablet 1 tab PO DAILY RF: 0 Lantus U-100 Insulin 100 unit/mL solution 44 unit subcut BEDTIME RF: 0 albuterol sulfate 90 mcg/actuation HFA aerosol inhaler 2 puff PO Q4H PRN (Reason: wheezing) RF: 0 lisinopril 40 mg tablet 1 tab PO DAILY RF: 0 budesonide-formoterol [Symbicort] 160-4.5 mcg/actuation HFA aerosol inhaler 2 puff PO BID RF: 0 Trulicity 1.5 mg/0.5 mL pen injector 1.5 mg subcut QWEEK RF: 0 Xolair 75 mg/0.5 mL syringe 75 mg subcut Q2W RF: 0 Xolair 150 mg/mL syringe 150 mg subcut Q2W RF: 0 Discontinued prednisone 10 mg tablet 40 mg PO DAILY RF: 0 Discharge Orders: Discharge Order (Routine); Ordered 02/18/21 Ordered By: Flynn Santos Diet: advance to usual diet Activity on Discharge: As tolerated Stand Alone Forms: Patient Portal Discharge page Care Plan Goals: recovery Health Concerns: uti, bph, rsv, asthma Plan of Treatment: prednisone course, ceftin, start on flomax, follow up with urology Assessment: see above
--- NOTE | 2021-02-18 11:24 | MHC.CM.PN ---
pt dcd home no servceis
[2021-02-18 11:42] LABS: Glucose, Whole Blood 349 mg/dL (60-115)
[2021-02-18 12:00] VITALS: BP 147/94; PULSE 94; RESP 16; TEMP 37.2; O2SAT 95
== END 2021-02-18 14:30 | disposition home or self-care (01) | DRG 720 ==
LOC: HO.ED 03:35 → HO.EDOVER 04:13 → HO.IMC 07:16
PROVIDERS: Admitting Provider Hospitalist; Emergency Provider Emergency Medicine; Visit Provider Internal Medicine
DX: A41.9 Sepsis, unspecified organism (principal); B97.4 Respiratory syncytial virus as the cause of diseases classified elsewhere; J45.41 Moderate persistent asthma with (acute) exacerbation; N39.0 Urinary tract infection, site not specified; E11.65 Type 2 diabetes mellitus with hyperglycemia; E78.5 Hyperlipidemia, unspecified; B96.20 Unspecified Escherichia coli [E. coli] as the cause of diseases classified elsewhere; E83.42 Hypomagnesemia; I10 Essential (primary) hypertension; R65.20 Severe sepsis without septic shock; N40.0 Benign prostatic hyperplasia without lower urinary tract symptoms; Z20.822 Contact with and (suspected) exposure to COVID-19; Z79.4 Long term (current) use of insulin; Z79.899 Other long term (current) drug therapy
CPT/HCPCS: 0241U; 36415; 71045; 80048; 80053; 80076; 81001; 82248; 82947; 83605; 83735; 83880; 84484; 85025; 85027; 87040; 87086; 87088; 87186; 93005; 94640; 96361; 96365; 96366; 96367; 96375; 99285; 99291; J0696; J1100; J1650; J2920; J3475

== ENCOUNTER 2021-02-22 17:17 | Emergency (ER) | payer OTHER, SELFPAY ==
--- NOTE | ~2021-02-22 | CT_ITS ---
EXAMINATION: CT ANGIOGRAM OF THE CHEST WITH AND WITHOUT CONTRAST (CT PULMONARY ANGIOGRAM FOR PE) CLINICAL INFORMATION: Reason for Exam RSV pneumonia with increased shortness of breath rule out PE COMPARISON: None TECHNIQUE: Prior to contrast administration, noncontrast localization images were obtained. Subsequently, multidetector volumetric imaging was performed from the thoracic inlet to below the diaphragms following the administration of 65 mL Omnipaque 350 intravenous contrast. No contrast reaction reported Sagittal, coronal, and MIP oblique sagittal reformatted images were obtained on the CT workstation, uploaded to PACS, and reviewed. This CT examination was performed using dose optimization techniques as appropriate, variously including the following: *Automated exposure control *Adjustment of mA and/or kV according to patient size (this includes techniques or standardized protocols for targeted exams where dose is matched to indication/reason for exam; i.e. extremities or head) *Use of iterative reconstruction technique Total exam dose-length product 369 mGy-cm FINDINGS: QUALITY OF STUDY/CONTRAST BOLUS: Suboptimal. Pulmonary veins are better opacified than the pulmonary arteries. PULMONARY ARTERIES: No central or large segmental pulmonary emboli. THORACIC AORTA: No aneurysm or dissection. 2 vessel arch seen with common trunk of the innominate and left carotid. LUNG: Peribronchial thickening is present with right middle lobe atelectasis. No focal infiltrates are seen. A 2 mm left upper lobe micronodule is present (6:162). No focal consolidation, nodules or masses. PLEURA: No pleural effusion or pneumothorax. MEDIASTINUM: Normal heart size. No pericardial effusion. No hilar or mediastinal lymphadenopathy. No evidence of septal bowing or right heart strain. CHEST WALL/AXILLA: No axillary or internal mammary lymphadenopathy. OSSEOUS STRUCTURES: No acute or suspicious osseous abnormality. UPPER ABDOMEN: 2 calcifications are seen in the right renal cortex largest measuring 2 mm. No reflux of contrast into the hepatic veins to suggest elevated right heart pressures. CT/CT angio chest PE protocol IMPRESSION: 1. No evidence of pulmonary emboli. 2. Peribronchial thickening is present 3. Incidental note made of a 2 mm left upper lobe micronodule and 2 small right renal nonobstructing calcifications. VTE: negative
--- NOTE | ~2021-02-22 | XR_ITS ---
EXAMINATION: XR CHEST CLINICAL INFORMATION: Shortness of breath COMPARISON: Chest x-ray January 2017, 2020 TECHNIQUE: Frontal portable view of the chest was obtained. 5:45 PM FINDINGS: No significant abnormality is noted involving the heart, lungs, mediastinum, bony thorax or soft tissues. XR/XR chest 1V IMPRESSION: Unremarkable examination.
[2021-02-22 17:27] VITALS: BP 148/82; PULSE 97; RESP 18; TEMP 36.6; O2SAT 97; BMI 31.4
--- NOTE | 2021-02-22 17:29 | ECG_ITS ---
Test Reason : DYSPNEA Blood Pressure : / mmHG Vent. Rate : 088 BPM Atrial Rate : 088 BPM P-R Int : 126 ms QRS Dur : 104 ms QT Int : 356 ms P-R-T Axes : 034 -48 075 degrees QTc Int : 430 ms Normal sinus rhythm Incomplete right bundle branch block Left anterior fascicular block Moderate voltage criteria for LVH, may be normal variant ( R in aVL , [place] product ) Abnormal ECG Heart rate has decreased Referred By: Generic ED Physician Electronically Signed By:RAYMUNDO ARAUJO MD
[2021-02-22 18:26] LABS: B Type Natriuretic Peptide 13 pg/mL (<100); Basophils Percent Auto 0.1 % (0-2); Eosinophils Percent Auto 0.1 % (0-4); Hematocrit 47.1 % (42.0-52.0); Hemoglobin 16.7 g/dl (14.0-18.0); Imm Gran Pct Auto 0.8 % (0.0-0.4); Lymphocytes Absolute Auto 0.6 X10*3/uL (1.2-4.9); Lymphocytes Percent Auto 4.4 % (20-40); MANUAL DIFF FLAG SCAN; Mean Corpuscular HGB Conc 35.5 g/dl (31.0-36.0); Mean Corpuscular Hemoglobin 31.6 pg (27.0-33.0); Mean Corpuscular Volume 89.2 fL (80.0-98.0); Mean Platelet Volume 9.8 fL (9.4-12.4); Monocytes Absolute Auto 0.5 X10*3/uL (0.1-1.2); Monocytes Percent Auto 3.6 % (2-11); Platelet Count 243 X10*3/uL (160-400); Red Blood Count 5.28 X10*6/uL (4.60-5.80); Red Cell Distribution Width 11.9 % (11.0-16.0); SCAN SMEAR FLAG 1; Troponin-I High Sensitivity < 3.5 ng/L (<3.5-35.0); White Blood Count 12.6 X10*3/uL (4.8-10.8)
[2021-02-22 18:37] LABS: Anion Gap 16 (12-20); Blood Urea Nitrogen 21 mg/dL (9-16); Calcium 9.3 mg/dL (8.4-10.2); Carbon Dioxide 24 mmol/L (22-29); Chloride 98 mmol/L (96-108); Creatinine Clr Calc Pharmacy 74.8; Estimated Glomerular Filt Rate > 60; Glucose Random 470 mg/dL (60-115); Potassium 4.9 mmol/L (3.3-5.1); Sodium 133 mmol/L (135-145)
[2021-02-22 18:47] LABS: SLIDE REVIEW VERIFIED
--- NOTE | 2021-02-22 22:31 | ED.SOB ---
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 tester vibrator equipment who ordered chest x-ray and labs chest x-ray was negative but D-dimer was elevated sent the patient here for CTA chest to rule out PE patient never had any blood clot in the past non leg swelling or pain no chest pain or palpitation at this time at resting patient saturating 96% at room air Related Data Home Medications Medication Instructions Recorded Confirmed albuterol sulfate 90 mcg/actuation 2 puff PO Q4H PRN 02/15/21 02/15/21 aerosol inhaler atorvastatin 40 mg tablet 1 tab PO DAILY 02/15/21 02/15/21 budesonide-formoterol HFA 160 2 puff PO BID 02/15/21 02/15/21 mcg-4.5 mcg/actuation aerosol inhaler (Symbicort) dulaglutide 1.5 mg/0.5 mL 1.5 mg SUBCUT QWEEK 02/15/21 02/15/21 subcutaneous pen injector (Trulicity) insulin glargine 100 unit/mL 44 unit SUBCUT BEDTIME 02/15/21 02/15/21 subcutaneous solution (Lantus U-100 Insulin) lisinopril 40 mg tablet 1 tab PO DAILY 02/15/21 02/15/21 omalizumab 150 mg/mL subcutaneous 150 mg SUBCUT Q2W 02/15/21 02/15/21 syringe (Xolair) omalizumab 75 mg/0.5 mL 75 mg SUBCUT Q2W 02/15/21 02/15/21 subcutaneous syringe (Xolair) Previous Rx's Medication Instructions Recorded cefuroxime axetil 500 mg tablet 500 mg PO Q12H #10 tab 02/18/21 prednisone 20 mg tablet 40 mg PO DAILY #10 tab 02/18/21 tamsulosin 0.4 mg capsule 0.4 mg PO BEDTIME #30 cap 02/18/21 Allergies Allergy/AdvReac Type Severity Reaction Status Date / Time No Known Allergies Allergy Verified 02/15/21 01:44 [No Known Allergies*] Review of Systems Review of Systems: Yes all other systems are reviewed and are negative FOR[facility]LY [facility] Past Medical History Medical History Asthma Diabetes High cholesterol Hypertension Pneumonia Social History Social History Household Members: Spouse Household Members Other:: 2 Housing: [facility] Alcohol intake: never Patient Tobacco Use Status: Never used Tobacco Advance Directives: No Advance Directives Information Provided: No service: No Current occupational status: employed Physical Exam Vital Signs: Vital Signs: Last Vital Signs Temp 98 F 02/22/21 17:27 Pulse 60 02/22/21 23:26 Resp 15 02/22/21 23:26 BP 142/82 H 02/22/21 23:26 Pulse Ox 95 02/22/21 23:26 Body Mass Index 31.4 Appearance: Alert. Oriented X3. No acute distress. Eyes: No pallor or icterus ENT: Pharynx normal. Oral Mucosa moist Neck: Normal inspection. Neck supple. CVS: Normal heart rate and rhythm. Pulses normal. Respiratory: No respiratory distress. Equal air entry bilateral, no wheezing/rales/prolonged expiration occasional rhonchi Abdomen: Soft and nontender. Bowel sounds are present, no mass palpable, no CVA tenderness Skin: Skin warm and dry. Normal skin color. Normal skin turgor. Extremities: No lower extremity edema MDM - SOB/Dyspnea MDM Narrative Medical decision making narrative: Patient's CT is negative for PE already on Ceftin prednisone inhaler will continue same advised to follow with PCP Lab Data Result diagrams: 02/22/21 17:56 02/22/21 17:56 Labs: Lab Results 02/22/21 02/22/21 02/22/21 Range/Units 17:56 17:56 17:56 WBC 12.6 H (4.8-10.8) X10*3/uL RBC 5.28 (4.60-5.80) X10*6/uL Hgb 16.7 (14.0-18.0) g/dl Hct 47.1 (42.0-52.0) % MCV 89.2 (80.0-98.0) fL MCH 31.6 (27.0-33.0) pg MCHC 35.5 (31.0-36.0) g/dl RDW 11.9 (11.0-16.0) % Plt Count 243 (160-400) X10*3/uL MPV 9.8 (9.4-12.4) fL Immature Gran % (Auto) 0.8 H (0.0-0.4) % Neut % (Auto) 91.0 H (45-73) % Lymph % (Auto) 4.4 L (20-40) % Garfield % (Auto) 3.6 (2-11) % Eos % (Auto) 0.1 (0-4) % Baso % (Auto) 0.1 (0-2) % Lymph # (Auto) 0.6 L (1.2-4.9) X10*3/uL Garfield # (Auto) 0.5 (0.1-1.2) X10*3/uL Eos # (Auto) 0.0 (0.0-0.4) X10*3/uL Baso # (Auto) 0.0 (0.0-0.2) X10*3/uL Abs Immat Gran (auto) 0.10 H (0.00-0.03) X10*3/uL Absolute Neuts (auto) 11.50 H (2.0-8.3) x10*3/uL Absolute Nucleated RBC 0.000 (0.0-0.012) X10*3/uL Nucleated RBC % (auto) 0.0 (0.0-0.2) /100WBC Smear Tech's Comments VERIFIED Sodium 133 L (135-145) mmol/L Potassium 4.9 (3.3-5.1) mmol/L Chloride 98 (96-108) mmol/L Carbon Dioxide 24 (22-29) mmol/L Anion Gap 16 (12-20) BUN 21 H (9-16) mg/dL Creatinine 1.03 (0.5-1.4) mg/dL Estim Creat Clear Calc 74.8 Estimated GFR > 60 POC Glucose (60-115) mg/dL Random Glucose 470 H* (60-115) mg/dL Calcium 9.3 (8.4-10.2) mg/dL Troponin I High Sens < 3.5 D (<3.5-35.0) ng/L B-Natriuretic Peptide 13 (<100) pg/mL 02/23/21 Range/Units 00:16 WBC (4.8-10.8) X10*3/uL RBC (4.60-5.80) X10*6/uL Hgb (14.0-18.0) g/dl Hct (42.0-52.0) % MCV (80.0-98.0) fL MCH (27.0-33.0) pg MCHC (31.0-36.0) g/dl RDW (11.0-16.0) % Plt Count (160-400) X10*3/uL MPV (9.4-12.4) fL Immature Gran % (Auto) (0.0-0.4) % Neut % (Auto) (45-73) % Lymph % (Auto) (20-40) % Garfield % (Auto) (2-11) % Eos % (Auto) (0-4) % Baso % (Auto) (0-2) % Lymph # (Auto) (1.2-4.9) X10*3/uL Garfield # (Auto) (0.1-1.2) X10*3/uL Eos # (Auto) (0.0-0.4) X10*3/uL Baso # (Auto) (0.0-0.2) X10*3/uL Abs Immat Gran (auto) (0.00-0.03) X10*3/uL Absolute Neuts (auto) (2.0-8.3) x10*3/uL Absolute Nucleated RBC (0.0-0.012) X10*3/uL Nucleated RBC % (auto) (0.0-0.2) /100WBC Smear Tech's Comments Sodium (135-145) mmol/L Potassium (3.3-5.1) mmol/L Chloride (96-108) mmol/L Carbon Dioxide (22-29) mmol/L Anion Gap (12-20) BUN (9-16) mg/dL Creatinine (0.5-1.4) mg/dL Estim Creat Clear Calc Estimated GFR POC Glucose 269 H (60-115) mg/dL Random Glucose (60-115) mg/dL Calcium (8.4-10.2) mg/dL Troponin I High Sens (<3.5-35.0) ng/L B-Natriuretic Peptide (<100) pg/mL Discharge Plan Discharge Clinical Impression: Chronic bronchitis Qualifiers: Chronic bronchitis type: mixed simple and mucopurulent Qualified Code(s): J41.8 - Mixed simple and mucopurulent chronic bronchitis Patient Disposition: Home, Self-Care Instructions: Chronic Bronchitis (ED) Additional Instructions: Continue your inhalers and prednisone and antibiotic as prescribed and follow-up with tester vibrator equipment Your CT scan of the chest is negative for blood clot Prescriptions: No Action atorvastatin 40 mg tablet 1 tab PO DAILY RF: 0 Lantus U-100 Insulin 100 unit/mL solution 44 unit subcut BEDTIME RF: 0 albuterol sulfate 90 mcg/actuation HFA aerosol inhaler 2 puff PO Q4H PRN (Reason: wheezing) RF: 0 lisinopril 40 mg tablet 1 tab PO DAILY RF: 0 budesonide-formoterol [Symbicort] 160-4.5 mcg/actuation HFA aerosol inhaler 2 puff PO BID RF: 0 Trulicity 1.5 mg/0.5 mL pen injector 1.5 mg subcut QWEEK RF: 0 Xolair 75 mg/0.5 mL syringe 75 mg subcut Q2W RF: 0 Xolair 150 mg/mL syringe 150 mg subcut Q2W RF: 0 tamsulosin 0.4 mg Capsule 0.4 mg PO BEDTIME Qty: 30 RF: 0 cefuroxime axetil 500 mg tablet 500 mg PO Q12H Qty: 10 RF: 0 prednisone 20 mg tablet 40 mg PO DAILY Qty: 10 RF: 0
[2021-02-22] MEDS: 0.9 % Sodium Chloride 1,000 ML 999 ML IVCONT (22:54)
[2021-02-22 23:26] VITALS: BP 142/82; PULSE 60; RESP 15; O2SAT 95
[2021-02-23 00:21] LABS: Glucose, Whole Blood 269 mg/dL (60-115)
[2021-02-23] MEDS: iohexoL 350 MG/ML 100 ML INFUS..BTL 65 ML IV (00:21)
== END 2021-02-23 01:00 | disposition home or self-care (01) ==
PROVIDERS: Emergency Provider Internal Medicine; PCP Internal Medicine
DX: J41.8 Mixed simple and mucopurulent chronic bronchitis (principal); R06.02 Shortness of breath; I10 Essential (primary) hypertension; E11.9 Type 2 diabetes mellitus without complications; J45.909 Unspecified asthma, uncomplicated
CPT/HCPCS: 36415; 71045; 71275; 80048; 82947; 83880; 84484; 85025; 93005; 96360; 99284; Q9967

== ENCOUNTER 2021-03-12 18:46 | Emergency (ER) | payer OTHER, SELFPAY ==
--- NOTE | ~2021-03-12 | CT_ITS ---
EXAMINATION: CT ABDOMEN AND PELVIS WITHOUT CONTRAST CLINICAL INFORMATION: Bilateral flank pain, history of stones COMPARISON: 08/25/2016 TECHNIQUE: Multidetector volumetric imaging was performed from the superior aspect of the liver through the pubic symphysis. Sagittal and coronal reformatted images were obtained on the technologist's workstation. This CT examination was performed using dose optimization techniques as appropriate, variously including the following: *Automated exposure control *Adjustment of mA and/or kV according to patient size (this includes techniques or standardized protocols for targeted exams where dose is matched to indication/reason for exam; i.e. extremities or head) *Use of iterative reconstruction technique DLP: 569 mGy-cm FINDINGS: LUNG BASES: The visualized lung bases are unremarkable. LIVER, GALLBLADDER, AND BILIARY TREE: The liver is normal in size, shape, and attenuation. No focal hepatic lesion or biliary ductal dilatation is present. The gallbladder is unremarkable with no evidence of radiopaque gallstones, gallbladder wall thickening, or obvious pericholecystic inflammatory changes. PANCREAS: There is subtle stranding adjacent to the distal pancreas. SPLEEN: Unremarkable. ADRENAL GLANDS: Unremarkable. KIDNEYS AND URETERS: There are 2 calcifications in the mid right kidney measuring up to 3 mm. No hydronephrosis bilaterally. No obstructing calculus is seen, though a portion of the mid to distal right ureter is not adequately assessed due to the artifact from left iliac artery coils. There is mild retroperitoneal stranding including near both ureters, of uncertain etiology. BLADDER: Unremarkable. GASTROINTESTINAL TRACT: The small and large bowel are unremarkable. The appendix is unremarkable. No free fluid or free air is seen. ABDOMINAL WALL: Fat-containing left inguinal hernia is noted. LYMPH NODES: Normal. VASCULAR: Scattered atherosclerotic calcifications are present. 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 There is a redemonstrated left internal iliac artery aneurysm measuring approximately 5.4 cm in diameter in the axial plane, versus 4.4 cm on 08/25/2016. PELVIC VISCERA: Unremarkable. OSSEOUS STRUCTURES: There is facet arthropathy of the lumbar spine. CT/CT abdomen pelvis wo con IMPRESSION: 1. No hydronephrosis bilaterally. No ureteral calculus is seen, though a portion the left ureter is obscured due to artifact from left internal iliac artery coils. 2. Mild retroperitoneal stranding including near the ureters, of uncertain etiology. Subtle changes of retroperitoneal fibrosis cannot be excluded. 3. Subtle stranding adjacent to the distal pancreas. Correlation with laboratory data is recommended, as mild pancreatitis cannot be excluded. 4. Left internal iliac artery coils, with aneurysm measuring approximately 5.4 centimeters in diameter.
[2021-03-12 19:17] VITALS: BP 147/83; PULSE 102; RESP 16; TEMP 38.3; O2SAT 98; BMI 30.2
[2021-03-12 19:41] LABS: Appearance Urine CLOUDY; Color Urine YELLOW; Glucose Urine UA NEG (NEG); Leukocyte Esterase Urine NEG (NEG); Nitrite Urine POS (NEG); Specific Gravity - Urine 1.025 (1.005-1.025); UACC Culture Trigger YES; Urine Blood 3+ (NEG); Urine Ketones 5 MG/DL (NEG); Urine Protein 3+ MG/DL (NEG-TRACE)
[2021-03-12 19:49] LABS: Bacteria Urine 2+ /LPF; Mucus Urine TRACE /LPF; RBC Urine TNTC /HPF (0); WBC Urine 30-49 /HPF (0-4)
[2021-03-12 20:00] VITALS: BP 136/81; PULSE 104; RESP 15; TEMP 38.2; O2SAT 94
[2021-03-12 21:22] LABS: Basophils Percent Auto 0.3 % (0-2); Eosinophils Percent Auto 0.3 % (0-4); Hematocrit 44.3 % (42.0-52.0); Hemoglobin 15.7 g/dl (14.0-18.0); Imm Gran Abs Auto 0.04 X10*3/uL (0.00-0.03); Imm Gran Pct Auto 0.4 % (0.0-0.4); Lymphocytes Absolute Auto 0.8 X10*3/uL (1.2-4.9); Lymphocytes Percent Auto 7.1 % (20-40); MANUAL DIFF FLAG NO; Mean Corpuscular HGB Conc 35.4 g/dl (31.0-36.0); Mean Corpuscular Volume 90.2 fL (80.0-98.0); Mean Platelet Volume 9.1 fL (9.4-12.4); Monocytes Absolute Auto 1.1 X10*3/uL (0.1-1.2); Monocytes Percent Auto 10.6 % (2-11); Neutrophils Absolute Auto 8.5 x10*3/uL (2.0-8.3); Neutrophils Percent Auto 81.3 % (45-73); Platelet Count 163 X10*3/uL (160-400); Red Blood Count 4.91 X10*6/uL (4.60-5.80); Red Cell Distribution Width 12.1 % (11.0-16.0); White Blood Count 10.5 X10*3/uL (4.8-10.8)
[2021-03-12 21:38] LABS: Lactic Acid 1.8 mmol/L (0.5-2.0)
[2021-03-12 21:42] LABS: Alanine Aminotransferase 47 U/L (0-40); Albumin Level 3.9 g/dL (3.5-5.0); Alkaline Phosphatase 72 U/L (39-117); Anion Gap 13 (12-20); Aspartate Amino Transferase 20 U/L (5-37); Bilirubin Total 1.6 mg/dL (0.0-1.0); Blood Urea Nitrogen 9 mg/dL (9-16); Calcium 9.3 mg/dL (8.4-10.2); Carbon Dioxide 28 mmol/L (22-29); Chloride 98 mmol/L (96-108); Creatinine Clr Calc Pharmacy 97.7; Estimated Glomerular Filt Rate > 60; Glucose Random 237 mg/dL (60-115); Sodium 135 mmol/L (135-145); Total Protein 6.3 g/dL (6.5-8.0)
[2021-03-12 23:44] VITALS: BP 127/73; PULSE 101; RESP 18; O2SAT 98
[2021-03-13] VITALS: BP 122/72; PULSE 101; RESP 15; TEMP 38.7; O2SAT 98
[2021-03-13 00:35] VITALS: RESP 15
[2021-03-13] MEDS: HYDROmorphone HCl 1 MG/ML SYRINGE IVPUSH (00:35)
[2021-03-13] MEDS: Ketorolac Tromethamine 15 MG/ML VIAL 30 MG IVPUSH (00:35)
[2021-03-13] MEDS: 0.9 % Sodium Chloride 1,000 ML 999 ML IV (00:36)
--- NOTE | 2021-03-13 01:17 | ED.MALEGU ---
HPI - Male Genitourinary General Chief complaint: Urogenital-Male Stated complaint: uti? Time Seen by Provider: 03/12/21 21:03 Source: patient Mode of arrival: ambulatory Limitations: no limitations History of Present Illness HPI Narrative: Patient comes emergency room complaining of 2-3 days of dysuria, bilateral flank pain, fever and chills. Patient states that a few weeks ago he was diagnosed with a UTI. Patient did well after his treatment. Patient states that now he has the same symptoms again. Denies vomiting or diarrhea Related Data Home Medications Medication Instructions Recorded Confirmed albuterol sulfate 90 mcg/actuation 2 puff PO Q4H PRN 02/15/21 02/15/21 aerosol inhaler atorvastatin 40 mg tablet 1 tab PO DAILY 02/15/21 02/15/21 budesonide-formoterol HFA 160 2 puff PO BID 02/15/21 02/15/21 mcg-4.5 mcg/actuation aerosol inhaler (Symbicort) dulaglutide 1.5 mg/0.5 mL 1.5 mg SUBCUT QWEEK 02/15/21 02/15/21 subcutaneous pen injector (Trulicity) insulin glargine 100 unit/mL 44 unit SUBCUT BEDTIME 02/15/21 02/15/21 subcutaneous solution (Lantus U-100 Insulin) lisinopril 40 mg tablet 1 tab PO DAILY 02/15/21 02/15/21 omalizumab 150 mg/mL subcutaneous 150 mg SUBCUT Q2W 02/15/21 02/15/21 syringe (Xolair) omalizumab 75 mg/0.5 mL 75 mg SUBCUT Q2W 02/15/21 02/15/21 subcutaneous syringe (Xolair) Previous Rx's Medication Instructions Recorded cefuroxime axetil 500 mg tablet 500 mg PO Q12H #10 tab 02/18/21 prednisone 20 mg tablet 40 mg PO DAILY #10 tab 02/18/21 tamsulosin 0.4 mg capsule 0.4 mg PO BEDTIME #30 cap 02/18/21 levofloxacin 750 mg tablet 750 mg PO DAILY #14 tab 03/13/21 Allergies Allergy/AdvReac Type Severity Reaction Status Date / Time No Known Allergies Allergy Verified 02/15/21 01:44 [No Known Allergies*] Review of Systems Review of Systems: Constitutional : No Weight loss, No Fever, No Chills, No Night Sweats, No Fatigue, No Malaise ENT/Mouth : No Hearing loss, No Ear Pain, No Nasal Congestion, No Sinus Pain, No Hoarseness, No sore throat, No Rhinorrhea, No Swallowing Difficulty Eyes: No Eye Pain, No Swelling, No Redness, No Foreign Body, No Discharge, No Vision Changes Cardiovascular : No Chest Pain, No SOB, No Dyspnea on Exertion, No Orthopnea, No Edema, No Palpitations Respiratory : No Cough, No Sputum, No Wheezing, No Smoke Exposure, No Dyspnea Gastrointestinal : No Nausea, No Vomiting, No Diarrhea, No Constipation, No abdominal Pain, No Hematochezia, No Melena Genitourinary : no irregular bleeding, complaining of Dysuria, No Urinary Frequency, No Hematuria, No Urinary Incontinence, No Urgency, No Flank Pain, No Urinary Flow Changes, No Hesitancy Musculoskeletal : No joint pain, No Myalgias, No Joint Swelling Skin : No Skin Lesions, No rash Neuro : No Weakness, No Numbness, No Paresthesias, No Loss of Consciousness, No Dizziness, No Headache Psych : No Anxiety/Panic, No Depression, No SI/HI/AH/VH, No Social Issues, Heme/Lymph: No Bruising, No Bleeding,No Lymphadenopathy Endocrine : No Polyuria, No Polydipsia, No Temperature Intolerance [facility] Past Medical History Medical History Asthma Diabetes High cholesterol Hypertension Pneumonia Social History Social History Household Members: Spouse Household Members Other:: 2 Housing: [facility] Alcohol intake: never Patient Tobacco Use Status: Never used Tobacco Use of substances other than those prescribed or required for medical reasons: No Advance Directives: No Advance Directives Information Provided: Yes service: No Current occupational status: employed Physical Exam Vital Signs: Vital Signs: Last Vital Signs Temp 97.9 F 03/13/21 02:00 Pulse 71 03/13/21 02:00 Resp 18 03/13/21 02:00 BP 130/69 03/13/21 02:00 Pulse Ox 96 03/13/21 02:00 Body Mass Index 30.2 Const: Other: Appearance: Alert. Oriented X3. No acute distress. Well-appearing Eyes: Pupils equal, round and reactive to light. ENT: Pharynx normal. Neck: Normal inspection. Neck supple. No lymph nodes noted. No crepitus CVS: Normal heart rate and rhythm. Pulses normal. Normal S1 and S2 Respiratory: No respiratory distress. Breath sounds normal. No Wheezing. No rales Abdomen: Soft and nontender. No rigidity. No distention. Back: Positive CVA tenderness bilaterally Skin: Skin warm and dry. Normal skin color. Normal skin turgor. Extremities: No lower extremity edema. No Lacerations. No Rash Neuro: Oriented X 3. No motor deficit. No sensory deficit. Moving all extermities. No slurred speech. Course Course Course Narrative: Discussed the CT scan with the patient, there are no kidney stones. Patient states that he is aware of the left internal iliac aneurysm and the coils. In the emergency room patient was given 1 dose of levofloxacin. I discussed with the patient that it is borderline whether he should stay in the hospital versus going home. Patient is not septic. Clinically he does have pyelonephritis. Patient decided to try antibiotics at home, if anything changes he will return. MDM - Male Genitourinary Lab Data Result diagrams: 03/12/21 21:15 03/12/21 21:15 Labs: Lab Results 03/12/21 03/12/21 03/12/21 Range/Units 19:34 21:15 21:15 WBC 10.5 (4.8-10.8) X10*3/uL RBC 4.91 (4.60-5.80) X10*6/uL Hgb 15.7 (14.0-18.0) g/dl Hct 44.3 (42.0-52.0) % MCV 90.2 (80.0-98.0) fL MCH 32.0 (27.0-33.0) pg MCHC 35.4 (31.0-36.0) g/dl RDW 12.1 (11.0-16.0) % Plt Count 163 D (160-400) X10*3/uL MPV 9.1 L (9.4-12.4) fL Immature Gran % (Auto) 0.4 (0.0-0.4) % Neut % (Auto) 81.3 H (45-73) % Lymph % (Auto) 7.1 L (20-40) % [place] % (Auto) 10.6 (2-11) % Eos % (Auto) 0.3 (0-4) % Baso % (Auto) 0.3 (0-2) % Lymph # (Auto) 0.8 L (1.2-4.9) X10*3/uL [place] # (Auto) 1.1 (0.1-1.2) X10*3/uL Eos # (Auto) 0.0 (0.0-0.4) X10*3/uL Baso # (Auto) 0.0 (0.0-0.2) X10*3/uL Abs Immat Gran (auto) 0.04 H (0.00-0.03) X10*3/uL Absolute Neuts (auto) 8.5 H (2.0-8.3) x10*3/uL Absolute Nucleated RBC 0.000 (0.0-0.012) X10*3/uL Nucleated RBC % (auto) 0.0 (0.0-0.2) /100WBC Sodium 135 (135-145) mmol/L Potassium 4.0 (3.3-5.1) mmol/L Chloride 98 (96-108) mmol/L Carbon Dioxide 28 (22-29) mmol/L Anion Gap 13 (12-20) BUN 9 D (9-16) mg/dL Creatinine 0.80 (0.5-1.4) mg/dL Estim Creat Clear Calc 97.7 Estimated GFR > 60 Random Glucose 237 H D (60-115) mg/dL Lactic Acid (0.5-2.0) mmol/L Calcium 9.3 (8.4-10.2) mg/dL Total Bilirubin 1.6 H (0.0-1.0) mg/dL AST 20 D (5-37) U/L ALT 47 H (0-40) U/L Alkaline Phosphatase 72 (39-117) U/L Total Protein 6.3 L (6.5-8.0) g/dL Albumin 3.9 (3.5-5.0) g/dL Urine Color YELLOW Urine Appearance CLOUDY Urine pH 7.0 (5.0-8.0) Ur Specific [place] 1.025 (1.005-1.025) Urine Protein 3+ H (NEG-TRACE) MG/DL Urine Glucose (UA) NEG (NEG) MG/DL Urine Ketones 5 (NEG) MG/DL Urine Blood 3+ H (NEG) Urine Nitrite POS H (NEG) Ur Leukocyte Esterase NEG (NEG) Urine RBC TNTC H (0) /HPF Urine WBC 30-49 H (0-4) /HPF Ur Squamous Epith Cells NONE /LPF Urine Bacteria 2+ /LPF Urine Mucus TRACE /LPF 03/12/21 Range/Units 21:15 WBC (4.8-10.8) X10*3/uL RBC (4.60-5.80) X10*6/uL Hgb (14.0-18.0) g/dl Hct (42.0-52.0) % MCV (80.0-98.0) fL MCH (27.0-33.0) pg MCHC (31.0-36.0) g/dl RDW (11.0-16.0) % Plt Count (160-400) X10*3/uL MPV (9.4-12.4) fL Immature Gran % (Auto) (0.0-0.4) % Neut % (Auto) (45-73) % Lymph % (Auto) (20-40) % [place] % (Auto) (2-11) % Eos % (Auto) (0-4) % Baso % (Auto) (0-2) % Lymph # (Auto) (1.2-4.9) X10*3/uL [place] # (Auto) (0.1-1.2) X10*3/uL Eos # (Auto) (0.0-0.4) X10*3/uL Baso # (Auto) (0.0-0.2) X10*3/uL Abs Immat Gran (auto) (0.00-0.03) X10*3/uL Absolute Neuts (auto) (2.0-8.3) x10*3/uL Absolute Nucleated RBC (0.0-0.012) X10*3/uL Nucleated RBC % (auto) (0.0-0.2) /100WBC Sodium (135-145) mmol/L Potassium (3.3-5.1) mmol/L Chloride (96-108) mmol/L Carbon Dioxide (22-29) mmol/L Anion Gap (12-20) BUN (9-16) mg/dL Creatinine (0.5-1.4) mg/dL Estim Creat Clear Calc Estimated GFR Random Glucose (60-115) mg/dL Lactic Acid 1.8 (0.5-2.0) mmol/L Calcium (8.4-10.2) mg/dL Total Bilirubin (0.0-1.0) mg/dL AST (5-37) U/L ALT (0-40) U/L Alkaline Phosphatase (39-117) U/L Total Protein (6.5-8.0) g/dL Albumin (3.5-5.0) g/dL Urine Color Urine Appearance Urine pH (5.0-8.0) Ur Specific [place] (1.005-1.025) Urine Protein (NEG-TRACE) MG/DL Urine Glucose (UA) (NEG) MG/DL Urine Ketones (NEG) MG/DL Urine Blood (NEG) Urine Nitrite (NEG) Ur Leukocyte Esterase (NEG) Urine RBC (0) /HPF Urine WBC (0-4) /HPF Ur Squamous Epith Cells /LPF Urine Bacteria /LPF Urine Mucus /LPF Imaging Data CT scan - abdomen: Radiologist's impression: FINDINGS: LUNG BASES: The visualized lung bases are unremarkable.? LIVER, GALLBLADDER, AND BILIARY TREE: The liver is normal in size, shape, and attenuation. No focal hepatic lesion or biliary ductal dilatation is present. The gallbladder is unremarkable with no evidence of radiopaque gallstones, gallbladder wall thickening, or obvious pericholecystic inflammatory changes.? PANCREAS: There is subtle stranding adjacent to the distal pancreas.? SPLEEN: Unremarkable.? ADRENAL GLANDS: Unremarkable.? KIDNEYS AND URETERS: There are 2 calcifications in the mid right kidney measuring up to 3 mm. No hydronephrosis bilaterally. No obstructing calculus is seen, though a portion of the mid to distal right ureter is not adequately assessed due to the artifact from left iliac artery coils. There is mild retroperitoneal stranding including near both ureters, of uncertain etiology.? BLADDER: Unremarkable.? GASTROINTESTINAL TRACT: The small and large bowel are unremarkable. The appendix is unremarkable. No free fluid or free air is seen. ABDOMINAL WALL: Fat-containing left inguinal hernia is noted. ? LYMPH NODES: Normal. VASCULAR: Scattered atherosclerotic calcifications are present. 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 There is a redemonstrated left internal iliac artery aneurysm measuring approximately 5.4 cm in diameter in the axial plane, versus 4.4 cm on 08/25/2016. PELVIC VISCERA: Unremarkable.? OSSEOUS STRUCTURES: There is facet arthropathy of the lumbar spine.? CT/CT abdomen pelvis wo con IMPRESSION: 1.? No hydronephrosis bilaterally. No ureteral calculus is seen, though a portion the left ureter is obscured due to artifact from left internal iliac artery coils. 2.? Mild retroperitoneal stranding including near the ureters, of uncertain etiology. Subtle changes of retroperitoneal fibrosis cannot be excluded. 3.? Subtle stranding adjacent to the distal pancreas. Correlation with laboratory data is recommended, as mild pancreatitis cannot be excluded. 4.? Left internal iliac artery coils, with aneurysm measuring approximately 5.4 centimeters in diameter. Discharge Plan Discharge Clinical Impression: Acute pyelonephritis Patient Disposition: Home, Self-Care Instructions: Urinary Tract Infection in Men (ED), Kidney Infection (ED) Additional Instructions: Please follow-up with your primary care physician tomorrow. If you have any worsening or new symptoms, please return to the emergency room or call 911 Prescriptions: New levofloxacin 750 mg tablet 750 mg PO DAILY Qty: 14 RF: 0 No Action atorvastatin 40 mg tablet 1 tab PO DAILY RF: 0 Lantus U-100 Insulin 100 unit/mL solution 44 unit subcut BEDTIME RF: 0 albuterol sulfate 90 mcg/actuation HFA aerosol inhaler 2 puff PO Q4H PRN (Reason: wheezing) RF: 0 lisinopril 40 mg tablet 1 tab PO DAILY RF: 0 budesonide-formoterol [Symbicort] 160-4.5 mcg/actuation HFA aerosol inhaler 2 puff PO BID RF: 0 Trulicity 1.5 mg/0.5 mL pen injector 1.5 mg subcut QWEEK RF: 0 Xolair 75 mg/0.5 mL syringe 75 mg subcut Q2W RF: 0 Xolair 150 mg/mL syringe 150 mg subcut Q2W RF: 0 tamsulosin 0.4 mg Capsule 0.4 mg PO BEDTIME Qty: 30 RF: 0 cefuroxime axetil 500 mg tablet 500 mg PO Q12H Qty: 10 RF: 0 prednisone 20 mg tablet 40 mg PO DAILY Qty: 10 RF: 0
[2021-03-13 01:25] VITALS: BP 119/61; PULSE 71; RESP 18; O2SAT 96
[2021-03-13] MEDS: levoFLOXacin/D5W 500 MG/100 ML PIGGYBACK 100 MG IV (01:30)
[2021-03-13 02:00] VITALS: BP 130/69; PULSE 71; RESP 18; TEMP 36.6; O2SAT 96
[2021-03-13] MEDS: ondansetron HCL 4 MG/2 ML VIAL IVPUSH (02:47)
== END 2021-03-13 03:43 | disposition home or self-care (01) ==
PROVIDERS: Emergency Provider Emergency Medicine; PCP Internal Medicine
DX: N10 Acute pyelonephritis (principal); Z79.899 Other long term (current) drug therapy
CPT/HCPCS: 36415; 74176; 80053; 81001; 83605; 85025; 87040; 87086; 87088; 87186; 96361; 96365; 96375; 99284; 99285; J1170; J1885; J1956; J2405

== ENCOUNTER 2022-03-22 18:07 | Emergency (ER) | payer OTHER, SELFPAY ==
--- NOTE | ~2022-03-22 | XR_ITS ---
EXAMINATION: XR CHEST CLINICAL INFORMATION: Rule out pneumonia or CHF COMPARISON: Previous chest x-ray most recent February 2021 TECHNIQUE: Frontal view of the chest was obtained. FINDINGS: No significant abnormality is noted involving the heart, lungs, mediastinum, bony thorax or soft tissues. XR/XR chest 1V IMPRESSION: Unremarkable examination.
[2022-03-22 19:18] VITALS: BP 107/68; PULSE 105; RESP 24; TEMP 37.6; O2SAT 94; BMI 31.1
--- NOTE | 2022-03-22 19:22 | ECG_ITS ---
Test Reason : sob Blood Pressure : / mmHG Vent. Rate : 098 BPM Atrial Rate : 098 BPM P-R Int : 134 ms QRS Dur : 106 ms QT Int : 340 ms P-R-T Axes : 012 -46 089 degrees QTc Int : 434 ms Normal sinus rhythm with sinus arrhythmia Left anterior fascicular block Minimal voltage criteria for LVH, may be normal variant ( [place] product ) Nonspecific ST and T wave abnormality Abnormal ECG When compared with ECG of 22-FEB-2021 17:48, No significant change was found Referred By: Faustino Krause Electronically Signed By:Abelardo Romero
--- NOTE | 2022-03-22 19:23 | ED_ITS ---
HPI - General Adult General Chief complaint: Dyspnea Stated complaint: sent from for xrays, SOB Time Seen by Provider: 03/22/22 21:44 Related Data Home Medications Medication Instructions Recorded Confirmed albuterol sulfate 90 mcg/actuation 2 puff PO Q4H PRN wheezing 02/15/21 02/15/21 aerosol inhaler atorvastatin 40 mg tablet 1 tab PO DAILY 02/15/21 02/15/21 budesonide-formoterol HFA 160 2 puff PO BID 02/15/21 02/15/21 mcg-4.5 mcg/actuation aerosol inhaler (Symbicort) dulaglutide 1.5 mg/0.5 mL 1.5 mg subcut QWEEK 02/15/21 02/15/21 subcutaneous pen injector (Trulicity) insulin glargine 100 unit/mL 44 unit subcut BEDTIME 02/15/21 02/15/21 subcutaneous solution (Lantus U-100 Insulin) lisinopril 40 mg tablet 1 tab PO DAILY 02/15/21 02/15/21 omalizumab 150 mg/mL subcutaneous 150 mg subcut Q2W 02/15/21 02/15/21 syringe (Xolair) omalizumab 75 mg/0.5 mL 75 mg subcut Q2W 02/15/21 02/15/21 subcutaneous syringe (Xolair) Previous Rx's Medication Instructions Recorded cefuroxime axetil 500 mg tablet 500 mg PO Q12H #10 tabs 02/18/21 prednisone 20 mg tablet 40 mg PO DAILY #10 tabs 02/18/21 tamsulosin 0.4 mg capsule 0.4 mg PO BEDTIME #30 caps 02/18/21 levofloxacin 750 mg tablet 750 mg PO DAILY #14 tabs 03/13/21 benzonatate 200 mg capsule 200 mg PO TID PRN cough #30 caps 03/22/22 codeine 10 mg-guaifenesin 100 mg/5 10 ml PO Q4-6H PRN cough #120 mL 03/22/22 mL oral liquid (Guaifenesin AC) Allergies Allergy/AdvReac Type Severity Reaction Status Date / Time No Known Allergies Allergy Verified 03/22/22 19:22 [No Known Allergies*] [facility] Past Medical History Medical History Asthma Diabetes High cholesterol Hypertension Pneumonia Social History Social History Household Members: Spouse Household Members Other:: 2 Housing: Correction Alcohol intake: never Patient Tobacco Use Status: Never used Tobacco Smoked in Last 30 Days: No Use of substances other than those prescribed or required for medical reasons: No Advance Directives: No Advance Directives Information Provided: No service: No Current occupational status: employed Physical Exam ED Vital Signs: Vital Signs - 24 hr 03/22/22 19:18 Temperature 99.7 F Pulse Rate 105 H Respiratory Rate 24 H Blood Pressure 107/68 Pulse Oximetry 94 Oxygen Delivery Method Room Air BMI result Body Mass Index 31.1 Course Course Course Narrative: RME: Coughing, wheezing, chest pain, and shortness of breathing. wheezing audible. 02 sat 94%. labs, EKG, and Chest xray ordered. Albuterol inhaler ordered Medications Administered Discontinued Medications Generic Name Dose Route Start Last Admin Trade Name Freq PRN Reason Stop Dose Admin Acetaminophen 650 mg 03/22/22 23:15 03/22/22 23:50 Acetaminophen 325 Mg Tablet PO 03/22/22 23:16 650 mg ONCE ONE Administration Albuterol/Ipratropium 3 ml 03/22/22 19:22 03/22/22 19:55 Albuterol/Iprat 2.5/0.5mg 3 Ml Ampul.Neb INHALE 03/22/22 19:23 3 ml ONCE ONE Administration Benzonatate 200 mg 03/22/22 21:50 03/22/22 22:28 Benzonatate 100 Mg Capsule PO 03/22/22 21:51 200 mg ONCE ONE Administration Guaifenesin/Codeine Phosphate 10 ml 03/22/22 21:50 03/22/22 22:29 Guaifen/Codeine Sf 200/20/10ml 10 Ml Liquid PO 03/22/22 21:51 10 ml ONCE ONE Administration Sodium Chloride 1,000 mls @ 999 mls/hr 03/22/22 21:45 03/22/22 23:51 Ns IVCONT 03/22/22 22:45 Infused .Q1H1M NEAL Infusion Medical Decision Making Lab Data Result diagrams: 03/22/22 19:54 03/22/22 19:54 Labs: Lab Results 12/05/1303/22/22 03/22/22 Range/Units 19:36 19:54 19:54 WBC 9.3 (4.8-10.8) X10*3/uL RBC 4.89 (4.60-5.80) X10*6/uL Hgb 14.9 (14.0-18.0) g/dl Hct 43.1 (42.0-52.0) % MCV 88.1 (80.0-98.0) fL MCH 30.5 (27.0-33.0) pg MCHC 34.6 (31.0-36.0) g/dl RDW 12.8 (11.0-16.0) % Plt Count 146 L (160-400) X10*3/uL MPV 9.6 (9.4-12.4) fL Immature Gran % (Auto) 0.4 (0.0-0.4) % Neut % (Auto) 80.2 H (45-73) % Lymph % (Auto) 9.1 L (20-40) % [place] % (Auto) 10.0 (2-11) % Eos % (Auto) 0.0 (0-4) % Baso % (Auto) 0.3 (0-2) % Lymph # (Auto) 0.9 L (1.2-4.9) X10*3/uL [place] # (Auto) 0.9 (0.1-1.2) X10*3/uL Eos # (Auto) 0.0 (0.0-0.4) X10*3/uL Baso # (Auto) 0.0 (0.0-0.2) X10*3/uL Abs Immat Gran (auto) 0.04 H (0.00-0.03) X10*3/uL Absolute Neuts (auto) 7.5 (2.0-8.3) x10*3/uL Absolute Nucleated RBC 0.000 (0.0-0.012) X10*3/uL Nucleated RBC % (auto) 0.0 (0.0-0.2) /100WBC PT 14.5 H (10.0-13.1) SEC INR 1.3 H (0.9-1.1) APTT 29.4 (26.0-36.4) SEC Sodium (135-145) mmol/L Potassium (3.3-5.1) mmol/L Chloride (96-108) mmol/L Carbon Dioxide (22-29) mmol/L Anion Gap (12-20) BUN (9-16) mg/dL Creatinine (0.5-1.4) mg/dL Estim Creat Clear Calc Estimated GFR Random Glucose (60-115) mg/dL Calcium (8.4-10.2) mg/dL Total Bilirubin (0.0-1.0) mg/dL AST (5-37) U/L ALT (0-40) U/L Alkaline Phosphatase (39-117) U/L Troponin I High Sens (<3.5-35.0) ng/L B-Natriuretic Peptide (<100) pg/mL Total Protein (6.5-8.0) g/dL Albumin (3.5-5.0) g/dL Influenza Type A (PCR) POSITIVE A (Negative) Influenza Type B (PCR) NEGATIVE (Negative) RSV RNA Qual (PCR) NEGATIVE (Negative) SARS-CoV-2 RNA (RT-PCR) NEGATIVE (Negative) 03/22/22 03/22/22 03/22/22 Range/Units 19:54 19:54 19:54 WBC (4.8-10.8) X10*3/uL RBC (4.60-5.80) X10*6/uL Hgb (14.0-18.0) g/dl Hct (42.0-52.0) % MCV (80.0-98.0) fL MCH (27.0-33.0) pg MCHC (31.0-36.0) g/dl RDW (11.0-16.0) % Plt Count (160-400) X10*3/uL MPV (9.4-12.4) fL Immature Gran % (Auto) (0.0-0.4) % Neut % (Auto) (45-73) % Lymph % (Auto) (20-40) % [place] % (Auto) (2-11) % Eos % (Auto) (0-4) % Baso % (Auto) (0-2) % Lymph # (Auto) (1.2-4.9) X10*3/uL [place] # (Auto) (0.1-1.2) X10*3/uL Eos # (Auto) (0.0-0.4) X10*3/uL Baso # (Auto) (0.0-0.2) X10*3/uL Abs Immat Gran (auto) (0.00-0.03) X10*3/uL Absolute Neuts (auto) (2.0-8.3) x10*3/uL Absolute Nucleated RBC (0.0-0.012) X10*3/uL Nucleated RBC % (auto) (0.0-0.2) /100WBC PT (10.0-13.1) SEC INR (0.9-1.1) APTT (26.0-36.4) SEC Sodium 130 L (135-145) mmol/L Potassium 3.6 (3.3-5.1) mmol/L Chloride 97 (96-108) mmol/L Carbon Dioxide 25 (22-29) mmol/L Anion Gap 12 (12-20) BUN 15 (9-16) mg/dL Creatinine 1.14 (0.5-1.4) mg/dL Estim Creat Clear Calc 66.4 Estimated GFR > 60 Random Glucose 230 H (60-115) mg/dL Calcium 8.7 D (8.4-10.2) mg/dL Total Bilirubin 1.8 H (0.0-1.0) mg/dL AST 23 (5-37) U/L ALT 24 (0-40) U/L Alkaline Phosphatase 61 (39-117) U/L Troponin I High Sens 11.5 (<3.5-35.0) ng/L B-Natriuretic Peptide 27 (<100) pg/mL Total Protein 6.4 L (6.5-8.0) g/dL Albumin 4.1 (3.5-5.0) g/dL Influenza Type A (PCR) (Negative) Influenza Type B (PCR) (Negative) RSV RNA Qual (PCR) (Negative) SARS-CoV-2 RNA (RT-PCR) (Negative) Discharge Plan Discharge Clinical Impression: Influenza A, Dehydration, Acute hyponatremia Patient Disposition: Home, Self-Care Instructions: Dehydration (ED), Hyponatremia (ED), Influenza (ED) Additional Instructions: You were evaluated for upper respiratory symptoms. He test positive for influenza A. Please take Tessalon 200 mg every 8 hours as needed for coughing. For dehydration and low sodium, we gave you 1 L of IV fluids. Please drink plenty of fluids. Take guaifenesin with codeine at night for cough. This medication is a narcotic has a high risk for addiction and abuse. Do not drive or operate machinery while taking this medication. Alternate Tylenol 650 mg every 6 hours and Motrin 600 mg every 6 hours for fever and pain management. Your last dose of Tylenol was given around midnight. Your next dose of Tylenol is due at 06:00. Consider taking Motrin at 03:00 so you can have pain and fever management every 3 hours. Write down what time you take these medications prevent accidental overdose. Thank you for choosing this emergency department for evaluation. Please follow-up with primary care physician as needed. Return to the emergency department for any new, concerning, or worsening symptoms. Prescriptions: New codeine-guaifenesin [Guaifenesin AC] 10-100 mg/5 mL liquid 10 ml PO Q4-6H PRN (Reason: cough) Qty: 120 0RF benzonatate 200 mg capsule 200 mg PO TID PRN (Reason: cough) Qty: 30 0RF No Action atorvastatin 40 mg tablet 1 tab PO DAILY Lantus U-100 Insulin 100 unit/mL solution 44 unit subcut BEDTIME albuterol sulfate 90 mcg/actuation HFA aerosol inhaler 2 puff PO Q4H PRN (Reason: wheezing) lisinopril 40 mg tablet 1 tab PO DAILY budesonide-formoterol [Symbicort] 160-4.5 mcg/actuation HFA aerosol inhaler 2 puff PO BID Trulicity 1.5 mg/0.5 mL pen injector 1.5 mg subcut QWEEK Xolair 75 mg/0.5 mL syringe 75 mg subcut Q2W Xolair 150 mg/mL syringe 150 mg subcut Q2W tamsulosin 0.4 mg Capsule 0.4 mg PO BEDTIME Qty: 30 0RF cefuroxime axetil 500 mg tablet 500 mg PO Q12H Qty: 10 0RF prednisone 20 mg tablet 40 mg PO DAILY Qty: 10 0RF levofloxacin 750 mg tablet 750 mg PO DAILY Qty: 14 0RF Interventions: ED Discharge Assessment Last Done: 03/22/22 23:57 Discharge Date/Time: 03/22/22 23:59
--- NOTE | 2022-03-22 19:30 | PC.NURSE ---
respiratory therapy made aware that pt needs a breathing treatment, will come down to do it
[2022-03-22 19:54] VITALS: PULSE 91; RESP 20; O2SAT 95
[2022-03-22] MEDS: Albuterol/Iprat 2.5/0.5MG 3 ML AMPUL.NEB INHALE (19:55)
[2022-03-22 20:02] LABS: MANUAL DIFF FLAG NO
[2022-03-22 20:03] LABS: Basophils Percent Auto 0.3 % (0-2); Hematocrit 43.1 % (42.0-52.0); Hemoglobin 14.9 g/dl (14.0-18.0); Imm Gran Abs Auto 0.04 X10*3/uL (0.00-0.03); Imm Gran Pct Auto 0.4 % (0.0-0.4); Lymphocytes Absolute Auto 0.9 X10*3/uL (1.2-4.9); Lymphocytes Percent Auto 9.1 % (20-40); Mean Corpuscular HGB Conc 34.6 g/dl (31.0-36.0); Mean Corpuscular Hemoglobin 30.5 pg (27.0-33.0); Mean Corpuscular Volume 88.1 fL (80.0-98.0); Mean Platelet Volume 9.6 fL (9.4-12.4); Monocytes Absolute Auto 0.9 X10*3/uL (0.1-1.2); Neutrophils Absolute Auto 7.5 x10*3/uL (2.0-8.3); Neutrophils Percent Auto 80.2 % (45-73); Platelet Count 146 X10*3/uL (160-400); Red Blood Count 4.89 X10*6/uL (4.60-5.80); Red Cell Distribution Width 12.8 % (11.0-16.0); White Blood Count 9.3 X10*3/uL (4.8-10.8)
[2022-03-22 20:20] LABS: INTERNATIONAL NORM RATIO 1.3 (0.9-1.1); Prothrombin Time 14.5 SEC (10.0-13.1)
[2022-03-22 20:22] LABS: Alanine Aminotransferase 24 U/L (0-40); Albumin Level 4.1 g/dL (3.5-5.0); Alkaline Phosphatase 61 U/L (39-117); Anion Gap 12 (12-20); Aspartate Amino Transferase 23 U/L (5-37); Bilirubin Total 1.8 mg/dL (0.0-1.0); Blood Urea Nitrogen 15 mg/dL (9-16); Calcium 8.7 mg/dL (8.4-10.2); Carbon Dioxide 25 mmol/L (22-29); Chloride 97 mmol/L (96-108); Creatinine Clr Calc Pharmacy 66.4; Estimated Glomerular Filt Rate > 60; Glucose Random 230 mg/dL (60-115); Potassium 3.6 mmol/L (3.3-5.1); Sodium 130 mmol/L (135-145); Total Protein 6.4 g/dL (6.5-8.0)
[2022-03-22 20:23] LABS: Partial Thromboplastin Time 29.4 SEC (26.0-36.4)
[2022-03-22 20:26] LABS: B Type Natriuretic Peptide 27 pg/mL (<100)
[2022-03-22 20:27] LABS: Influenza A PCR POSITIVE (Negative); Influenza B PCR NEGATIVE (Negative); Resp Syncy Virus RNA Qual PCR NEGATIVE (Negative); SARS COV2 PCR INHOUSE NEGATIVE (Negative)
[2022-03-22 20:30] LABS: Troponin-I High Sensitivity 11.5 ng/L (<3.5-35.0)
[2022-03-22 21:11] VITALS: BP 133/63; PULSE 94; RESP 20; TEMP 39; O2SAT 93
--- NOTE | 2022-03-22 21:45 | ED.SOB ---
HPI - SOB/Dyspnea General Chief Complaint: Dyspnea Stated Complaint: sent from for xrays, SOB Time Seen by Provider: 03/22/22 21:44 Source: patient Mode of arrival: ambulatory Limitations: no limitations History of Present Illness HPI Narrative: 62-year-old male presents from Urgent Care for evaluation for shortness of breath, wheezing, and chest tightness. MD elicited complaint: shortness of breath and cough Onset (ago): day(s) Timing: constant and progressively worsening Severity: moderate Exacerbating factors: exertion, coughing and cold air Relieving factors: nothing Associated symptoms: denies other symptoms Treatment prior to arrival: none Related Data Home Medications Medication Instructions Recorded Confirmed albuterol sulfate 90 mcg/actuation 2 puff PO Q4H PRN wheezing 02/15/21 02/15/21 aerosol inhaler atorvastatin 40 mg tablet 1 tab PO DAILY 02/15/21 02/15/21 budesonide-formoterol HFA 160 2 puff PO BID 02/15/21 02/15/21 mcg-4.5 mcg/actuation aerosol inhaler (Symbicort) dulaglutide 1.5 mg/0.5 mL 1.5 mg subcut QWEEK 02/15/21 02/15/21 subcutaneous pen injector (Trulicity) insulin glargine 100 unit/mL 44 unit subcut BEDTIME 02/15/21 02/15/21 subcutaneous solution (Lantus U-100 Insulin) lisinopril 40 mg tablet 1 tab PO DAILY 02/15/21 02/15/21 omalizumab 150 mg/mL subcutaneous 150 mg subcut Q2W 02/15/21 02/15/21 syringe (Xolair) omalizumab 75 mg/0.5 mL 75 mg subcut Q2W 02/15/21 02/15/21 subcutaneous syringe (Xolair) Previous Rx's Medication Instructions Recorded cefuroxime axetil 500 mg tablet 500 mg PO Q12H #10 tabs 02/18/21 prednisone 20 mg tablet 40 mg PO DAILY #10 tabs 02/18/21 tamsulosin 0.4 mg capsule 0.4 mg PO BEDTIME #30 caps 02/18/21 levofloxacin 750 mg tablet 750 mg PO DAILY #14 tabs 03/13/21 benzonatate 200 mg capsule 200 mg PO TID PRN cough #30 caps 03/22/22 codeine 10 mg-guaifenesin 100 mg/5 10 ml PO Q4-6H PRN cough #120 mL 03/22/22 mL oral liquid (Guaifenesin AC) Allergies Allergy/AdvReac Type Severity Reaction Status Date / Time No Known Allergies Allergy Verified 03/22/22 19:22 [No Known Allergies*] Review of Systems Review of Systems: Constitutional: positive Fever, positive Chills, positive fatigue, positive Malaise ENT/Mouth: positive sore throat, positive runny nose Eyes: No Discharge Cardiovascular: No Chest Pain, No SOB Respiratory: Positive Cough, No Sputum, positive Wheezing, No Smoke Exposure, No Dyspnea Gastrointestinal: No Nausea, No Vomiting, No Diarrhea Genitourinary: no irregular bleeding, No Dysuria, No Urinary Frequency, No Hematuria, No Urinary Incontinence, No Urgency, No Flank Pain, Musculoskeletal: positive Myalgia Skin: No rash Neuro: No Headache Yes all other systems are reviewed and are negative [facility] Past Medical History Attestation statement: The following information was validated with the patient. Source: old records reviewed Medical History Asthma Diabetes High cholesterol Hypertension Pneumonia Social History Social History Household Members: Spouse Household Members Other:: 2 Housing: Retirement Alcohol intake: never Patient Tobacco Use Status: Never used Tobacco Smoked in Last 30 Days: No Use of substances other than those prescribed or required for medical reasons: No Advance Directives: No Advance Directives Information Provided: No service: No Current occupational status: employed Physical Exam Vital Signs: Vital Signs: Last Vital Signs Temp 102.2 F H 03/22/22 21:11 Pulse 93 03/22/22 23:55 Resp 20 03/22/22 23:55 BP 146/68 H 03/22/22 23:55 Pulse Ox 95 03/22/22 23:55 O2 Del Method 03/22/22 23:55 BMI result Body Mass Index 31.1 Appearance: Alert. Oriented X3. Mild distress. Eyes: Pupils equal, round and reactive to light. Sclera nonicteric. ENT: Pharynx normal. Dry mucous membranes Neck: Normal inspection. Neck supple. CVS: Normal heart rate and rhythm. Pulses normal. Respiratory: No respiratory distress. Expiratory wheezing throughout. Abdomen: Soft and nontender. Skin: Skin warm and dry. Normal skin color. Normal skin turgor. Extremities: No lower extremity edema. Gait well-balanced well coordinated. Neuro: No motor deficit. No sensory deficit. Cranial nerves 2-12 intact. Course Course Course Narrative: 62-year-old male presents for upper respiratory symptoms. Was referred to ED by urgent care for shortness breath and expiratory wheezing. Patient's labs drawn while he was in the emergency department bleeding room, tested positive for influenza A. Sodium at 0130, will order 1 L of fluids, Tessalon and guaifenesin with codeine for cough. Patient is alert oriented x4, even unlabored respirations, speaking in complete sentences. Appears tired. Patient verbalized understanding of and agrees to plan of care discharge home. Verbalized understanding of supportive measures and signs and symptoms indicating need for emergent intervention. Medications Administered Discontinued Medications Generic Name Dose Route Start Last Admin Trade Name Freq PRN Reason Stop Dose Admin Acetaminophen 650 mg 03/22/22 23:15 03/22/22 23:50 Acetaminophen 325 Mg Tablet PO 03/22/22 23:16 650 mg ONCE ONE Administration Albuterol/Ipratropium 3 ml 03/22/22 19:22 03/22/22 19:55 Albuterol/Iprat 2.5/0.5mg 3 Ml Ampul.Neb INHALE 03/22/22 19:23 3 ml ONCE ONE Administration Benzonatate 200 mg 03/22/22 21:50 03/22/22 22:28 Benzonatate 100 Mg Capsule PO 03/22/22 21:51 200 mg ONCE ONE Administration Guaifenesin/Codeine Phosphate 10 ml 03/22/22 21:50 03/22/22 22:29 Guaifen/Codeine Sf 200/20/10ml 10 Ml Liquid PO 03/22/22 21:51 10 ml ONCE ONE Administration Sodium Chloride 1,000 mls @ 999 mls/hr 03/22/22 21:45 03/22/22 23:51 Ns IVCONT 03/22/22 22:45 Infused .Q1H1M NEAL Infusion MDM - SOB/Dyspnea MDM Narrative Medical decision making narrative: Influenza, COVID, RSV Differential Diagnosis Differential diagnosis: Likely pneumonia and anemia Medical Records Attestation: I reviewed the patient's medical records. Lab Data Attestation: I reviewed the patient's lab results. Result diagrams: 03/22/22 19:54 03/22/22 19:54 Labs: Lab Results 03/22/22 03/22/22 03/22/22 Range/Units 19:36 19:54 19:54 WBC 9.3 (4.8-10.8) X10*3/uL RBC 4.89 (4.60-5.80) X10*6/uL Hgb 14.9 (14.0-18.0) g/dl Hct 43.1 (42.0-52.0) % MCV 88.1 (80.0-98.0) fL MCH 30.5 (27.0-33.0) pg MCHC 34.6 (31.0-36.0) g/dl RDW 12.8 (11.0-16.0) % Plt Count 146 L (160-400) X10*3/uL MPV 9.6 (9.4-12.4) fL Immature Gran % (Auto) 0.4 (0.0-0.4) % Neut % (Auto) 80.2 H (45-73) % Lymph % (Auto) 9.1 L (20-40) % [place] % (Auto) 10.0 (2-11) % Eos % (Auto) 0.0 (0-4) % Baso % (Auto) 0.3 (0-2) % Lymph # (Auto) 0.9 L (1.2-4.9) X10*3/uL [place] # (Auto) 0.9 (0.1-1.2) X10*3/uL Eos # (Auto) 0.0 (0.0-0.4) X10*3/uL Baso # (Auto) 0.0 (0.0-0.2) X10*3/uL Abs Immat Gran (auto) 0.04 H (0.00-0.03) X10*3/uL Absolute Neuts (auto) 7.5 (2.0-8.3) x10*3/uL Absolute Nucleated RBC 0.000 (0.0-0.012) X10*3/uL Nucleated RBC % (auto) 0.0 (0.0-0.2) /100WBC PT 14.5 H (10.0-13.1) SEC INR 1.3 H (0.9-1.1) APTT 29.4 (26.0-36.4) SEC Sodium (135-145) mmol/L Potassium (3.3-5.1) mmol/L Chloride (96-108) mmol/L Carbon Dioxide (22-29) mmol/L Anion Gap (12-20) BUN (9-16) mg/dL Creatinine (0.5-1.4) mg/dL Estim Creat Clear Calc Estimated GFR Random Glucose (60-115) mg/dL Calcium (8.4-10.2) mg/dL Total Bilirubin (0.0-1.0) mg/dL AST (5-37) U/L ALT (0-40) U/L Alkaline Phosphatase (39-117) U/L Troponin I High Sens (<3.5-35.0) ng/L B-Natriuretic Peptide (<100) pg/mL Total Protein (6.5-8.0) g/dL Albumin (3.5-5.0) g/dL Influenza Type A (PCR) POSITIVE A (Negative) Influenza Type B (PCR) NEGATIVE (Negative) RSV RNA Qual (PCR) NEGATIVE (Negative) SARS-CoV-2 RNA (RT-PCR) NEGATIVE (Negative) 03/22/22 03/22/22 03/22/22 Range/Units 19:54 19:54 19:54 WBC (4.8-10.8) X10*3/uL RBC (4.60-5.80) X10*6/uL Hgb (14.0-18.0) g/dl Hct (42.0-52.0) % MCV (80.0-98.0) fL MCH (27.0-33.0) pg MCHC (31.0-36.0) g/dl RDW (11.0-16.0) % Plt Count (160-400) X10*3/uL MPV (9.4-12.4) fL Immature Gran % (Auto) (0.0-0.4) % Neut % (Auto) (45-73) % Lymph % (Auto) (20-40) % [place] % (Auto) (2-11) % Eos % (Auto) (0-4) % Baso % (Auto) (0-2) % Lymph # (Auto) (1.2-4.9) X10*3/uL [place] # (Auto) (0.1-1.2) X10*3/uL Eos # (Auto) (0.0-0.4) X10*3/uL Baso # (Auto) (0.0-0.2) X10*3/uL Abs Immat Gran (auto) (0.00-0.03) X10*3/uL Absolute Neuts (auto) (2.0-8.3) x10*3/uL Absolute Nucleated RBC (0.0-0.012) X10*3/uL Nucleated RBC % (auto) (0.0-0.2) /100WBC PT (10.0-13.1) SEC INR (0.9-1.1) APTT (26.0-36.4) SEC Sodium 130 L (135-145) mmol/L Potassium 3.6 (3.3-5.1) mmol/L Chloride 97 (96-108) mmol/L Carbon Dioxide 25 (22-29) mmol/L Anion Gap 12 (12-20) BUN 15 (9-16) mg/dL Creatinine 1.14 (0.5-1.4) mg/dL Estim Creat Clear Calc 66.4 Estimated GFR > 60 Random Glucose 230 H (60-115) mg/dL Calcium 8.7 D (8.4-10.2) mg/dL Total Bilirubin 1.8 H (0.0-1.0) mg/dL AST 23 (5-37) U/L ALT 24 (0-40) U/L Alkaline Phosphatase 61 (39-117) U/L Troponin I High Sens 11.5 (<3.5-35.0) ng/L B-Natriuretic Peptide 27 (<100) pg/mL Total Protein 6.4 L (6.5-8.0) g/dL Albumin 4.1 (3.5-5.0) g/dL Influenza Type A (PCR) (Negative) Influenza Type B (PCR) (Negative) RSV RNA Qual (PCR) (Negative) SARS-CoV-2 RNA (RT-PCR) (Negative) Imaging Data Chest x-ray: Attestation: I personally reviewed and interpreted this imaging study as follows: Radiologist's impression: EXAMINATION: XR CHEST CLINICAL INFORMATION: Rule out pneumonia or CHF COMPARISON: Previous chest x-ray most recent February 2021 TECHNIQUE: Frontal view of the chest was obtained. FINDINGS: No significant abnormality is noted involving the heart, lungs, mediastinum, bony thorax or soft tissues. XR/XR chest 1V IMPRESSION: Unremarkable examination. ECG Data Attestation: I personally reviewed and interpreted this ECG as follows: ECG interpretation date: 03/22/22 ECG interpretation time: 20:40 Prior ECG tracings: available for review Interpretation: Vent. rate 98 BPM W[place] interval 134 ms QRS duration 106 ms QT/QTc 340/434 ms P-R-T axes 12 -46 89 Normal sinus rhythm with sinus arrhythmia Left anterior fascicular block Minimal voltage criteria for LVH, may be normal variant ( Issa product ) Nonspecific ST and T wave abnormality Abnormal ECG When compared with ECG of 22-FEB-2021 17:48, No significant change was found Discharge Plan Discharge Clinical Impression: Influenza A, Dehydration, Acute hyponatremia Patient Disposition: Home, Self-Care Instructions: Dehydration (ED), Hyponatremia (ED), Influenza (ED) Additional Instructions: You were evaluated for upper respiratory symptoms. He test positive for influenza A. Please take Tessalon 200 mg every 8 hours as needed for coughing. For dehydration and low sodium, we gave you 1 L of IV fluids. Please drink plenty of fluids. Take guaifenesin with codeine at night for cough. This medication is a narcotic has a high risk for addiction and abuse. Do not drive or operate machinery while taking this medication. Alternate Tylenol 650 mg every 6 hours and Motrin 600 mg every 6 hours for fever and pain management. Your last dose of Tylenol was given around midnight. Your next dose of Tylenol is due at 06:00. Consider taking Motrin at 03:00 so you can have pain and fever management every 3 hours. Write down what time you take these medications prevent accidental overdose. Thank you for choosing this emergency department for evaluation. Please follow-up with primary care physician as needed. Return to the emergency department for any new, concerning, or worsening symptoms. Prescriptions: New codeine-guaifenesin [Guaifenesin AC] 10-100 mg/5 mL liquid 10 ml PO Q4-6H PRN (Reason: cough) Qty: 120 0RF benzonatate 200 mg capsule 200 mg PO TID PRN (Reason: cough) Qty: 30 0RF No Action atorvastatin 40 mg tablet 1 tab PO DAILY Lantus U-100 Insulin 100 unit/mL solution 44 unit subcut BEDTIME albuterol sulfate 90 mcg/actuation HFA aerosol inhaler 2 puff PO Q4H PRN (Reason: wheezing) lisinopril 40 mg tablet 1 tab PO DAILY budesonide-formoterol [Symbicort] 160-4.5 mcg/actuation HFA aerosol inhaler 2 puff PO BID Trulicity 1.5 mg/0.5 mL pen injector 1.5 mg subcut QWEEK Xolair 75 mg/0.5 mL syringe 75 mg subcut Q2W Xolair 150 mg/mL syringe 150 mg subcut Q2W tamsulosin 0.4 mg Capsule 0.4 mg PO BEDTIME Qty: 30 0RF cefuroxime axetil 500 mg tablet 500 mg PO Q12H Qty: 10 0RF prednisone 20 mg tablet 40 mg PO DAILY Qty: 10 0RF levofloxacin 750 mg tablet 750 mg PO DAILY Qty: 14 0RF Interventions: ED Discharge Assessment Last Done: 03/22/22 23:57 Discharge Date/Time: 03/22/22 23:59
[2022-03-22] MEDS: Benzonatate 100 MG CAPSULE 200 MG PO (22:28)
[2022-03-22] MEDS: 0.9 % Sodium Chloride 1,000 ML 999 ML IVCONT (22:28)
[2022-03-22] MEDS: guaiFEN/Codeine SF 200/20/10ML 10 ML LIQUID PO (22:29)
[2022-03-22] MEDS: Acetaminophen 325 MG TABLET 650 MG PO (23:50)
[2022-03-22 23:55] VITALS: BP 146/68; PULSE 93; RESP 20; O2SAT 95
== END 2022-03-22 23:59 | disposition home or self-care (01) ==
PROVIDERS: Physician Assistant; Emergency Provider Internal Medicine
DX: J11.1 Influenza due to unidentified influenza virus with other respiratory manifestations (principal); E87.1 Hypo-osmolality and hyponatremia; E86.0 Dehydration; R06.02 Shortness of breath; R50.9 Fever, unspecified; Z20.822 Contact with and (suspected) exposure to COVID-19; E11.9 Type 2 diabetes mellitus without complications; I10 Essential (primary) hypertension; E78.5 Hyperlipidemia, unspecified; Z79.02 Long term (current) use of antithrombotics/antiplatelets; Z79.4 Long term (current) use of insulin; Z79.899 Other long term (current) drug therapy
CPT/HCPCS: 0241U; 36415; 71045; 80053; 83880; 84484; 85025; 85610; 85730; 93005; 94640; 96360; 99284; 99285

== ENCOUNTER 2022-04-11 20:10 | Emergency (ER) | payer OTHER, SELFPAY ==
--- NOTE | ~2022-04-11 | CT_ITS ---
EXAMINATIONS: CT HEAD WITHOUT CONTRAST AND CT CERVICAL SPINE WITHOUT CONTRAST CLINICAL INFORMATION: Headache, rule out bleed, stroke, mass affect. Neck pain, rule out fracture. COMPARISON: None. TECHNIQUE: Contiguous helical images of the brain were obtained without IV contrast. Contiguous helical images of the cervical spine were obtained without IV contrast. Multiplanar reconstructions were performed. This CT examination was performed using dose optimization techniques as appropriate, variously including the following: *Automated exposure control *Adjustment of mA and/or kV according to patient size (this includes techniques or standardized protocols for targeted exams where dose is matched to indication/reason for exam; i.e. extremities or head) *Use of iterative reconstruction technique DLP: 1267 mGy-cm combined FINDINGS: There is no evidence of acute intracranial hemorrhage or evolving territorial infarct. No extra-axial collections are identified. No mass effect or midline shift. There is no ventriculomegaly. There is no discrete abnormal attenuation of the brain parenchyma. No acute bony or soft tissue findings. No mastoid effusion. There are presumably postsurgical changes involving the paranasal sinuses and nasal cavity, including changes of maxillary antrostomy and ethmoidectomy. There also appears to be partial resection of the nasal septum and nasal turbinates. Portions of the bilateral nasal bones are also thinned. There is a fair amount of mucosal thickening involving the paranasal sinuses, as well as fluid and secretions. There is also polypoid soft tissue in the nasal cavity. The bony sinus abdalla are thickened indicative of chronic sinusitis. There is no evidence of acute cervical spine fracture. The cervical vertebra are in normal alignment. Disc heights and vertebral heights are preserved. There is mild facet arthropathy at a few levels. There is no prevertebral soft tissue swelling. No focal airspace consolidation in the visualized lung apices. CT/CT cervical spine wo IV con IMPRESSION: No evidence for acute intracranial pathology. No acute fracture or traumatic subluxation of the cervical spine. Extensive changes within the paranasal sinuses and nasal cavity, presumably postsurgical, related to chronic sinusitis. There continues to be polypoid mucosal thickening, and fluid/secretions within the sinuses. Recommend correlation with history of prior surgery. If there is no such history, then this appearance may be due to a more aggressive process with bony erosion, which would warrant further evaluation.
[2022-04-11 20:20] VITALS: BP 126/84; PULSE 80; RESP 18; TEMP 37; O2SAT 96; BMI 29.8
--- NOTE | 2022-04-11 20:31 | ED_ITS ---
HPI - General Adult General Chief complaint: General Medical <Alexis Moise MD - Last Filed: 04/11/22 20:33> Stated complaint: back of head/ neck- pain and throbbing <Alexis Moise MD - Last Filed: 04/11/22 20:33> Time Seen by Provider: 04/11/22 21:45 <Alexis Moise MD - Last Filed: 04/11/22 20:33> Source: patient <ARIAS Moore - Last Filed: 04/11/22 23:27> Mode of arrival: ambulatory <ARIAS Moore - Last Filed: 04/11/22 23:27> Limitations: no limitations <ARIAS Moore - Last Filed: 04/11/22 23:27> History of Present Illness HPI narrative: This is a 62-year-old male history of hypomagnesemia, asthma, diabetes pre senting to the emergency department with complaints of throbbing pain to the back of his head that started 4 days ago , reports headache is associated with some pressure behind his eyes. Tells me this has been continuous since Saturday. Tells me thinks it started after he slept wrong. He is telling me it feels like a bad stiff neck. Worse with movement better at rest. Tells me this is never happened to him before. Patient has been taking ibuprofen at home with little to no relief. Patient denies fevers, chills, lower back pain, weakness, numbness, tingling, pain with eye movements, chest pain, shortness of breath, nausea, vomiting, abdominal pain. <ARIAS Moore - Last Filed: 04/11/22 23:27> Related Data Home medications: Home Medications Medication Instructions Recorded Confirmed albuterol sulfate 90 mcg/actuation 2 puff PO Q4H PRN wheezing 02/15/21 02/15/21 aerosol inhaler atorvastatin 40 mg tablet 1 tab PO DAILY 02/15/21 02/15/21 budesonide-formoterol HFA 160 2 puff PO BID 02/15/21 02/15/21 mcg-4.5 mcg/actuation aerosol inhaler (Symbicort) dulaglutide 1.5 mg/0.5 mL 1.5 mg subcut QWEEK 02/15/21 02/15/21 subcutaneous pen injector (Trulicity) insulin glargine 100 unit/mL 44 unit subcut BEDTIME 02/15/21 02/15/21 subcutaneous solution (Lantus U-100 Insulin) lisinopril 40 mg tablet 1 tab PO DAILY 02/15/21 02/15/21 omalizumab 150 mg/mL subcutaneous 150 mg subcut Q2W 02/15/21 02/15/21 syringe (Xolair) omalizumab 75 mg/0.5 mL 75 mg subcut Q2W 02/15/21 02/15/21 subcutaneous syringe (Xolair) Previous Rx's Medication Instructions Recorded cefuroxime axetil 500 mg tablet 500 mg PO Q12H #10 tabs 02/18/21 prednisone 20 mg tablet 40 mg PO DAILY #10 tabs 02/18/21 tamsulosin 0.4 mg capsule 0.4 mg PO BEDTIME #30 caps 02/18/21 levofloxacin 750 mg tablet 750 mg PO DAILY #14 tabs 03/13/21 benzonatate 200 mg capsule 200 mg PO TID PRN cough #30 caps 03/22/22 codeine 10 mg-guaifenesin 100 mg/5 10 ml PO Q4-6H PRN cough #120 mL 03/22/22 mL oral liquid (Guaifenesin AC) cyclobenzaprine 10 mg tablet 10 mg PO BEDTIME PRN muscle spasm 04/11/22 #7 tabs ketorolac 10 mg tablet 10 mg PO TID PRN pain 5 days #15 04/11/22 tabs lidocaine 5 % topical patch 1 patch topical DAILY PRN pain #15 04/11/22 ea <Alexis Moise MD - Last Filed: 04/11/22 20:33> Allergies/adverse reactions: Allergies Allergy/AdvReac Type Severity Reaction Status Date / Time No Known Allergies Allergy Verified 04/11/22 20:25 [No Known Allergies*] <Alexis Moise MD - Last Filed: 04/11/22 20:33> Review of Systems Review of Systems: Constitutional : No Weight loss, No Fever, No Chills, No Fatigue, No Malaise ENT/Mouth : No sore throat, No Rhinorrhea, Eyes: No Eye Pain, No Swelling, No Redness, + eye pressure Cardiovascular : No Chest Pain, No SOB, No Dyspnea on Exertion, No Orthopnea, No Edema, No Palpitations Respiratory : No Cough, No Sputum, No Wheezing Gastrointestinal : No Nausea, No Vomiting, No Diarrhea, No Constipation, No abdominal Pain, No Hematochezia, No Melena Genitourinary : No Dysuria, No Urinary Frequency, No Hematuria, Musculoskeletal : No joint pain, No Myalgias, No Joint Swelling, + neck pain Skin : No Skin Lesions, No rash Neuro : No Weakness, No Numbness, No Dizziness, No Headache Psych : No Anxiety/Panic, No Depression All other systems reviewed and are negative <ARIAS Moore - Last Filed: 04/11/22 23:27> Yes all other systems are reviewed and are negative <ARIAS Moore - Last Filed: 04/11/22 23:27> [facility]LY [facility] Past Medical History Attestation statement: The following information was validated with the patient. <ARIAS Moore - Last Filed: 04/11/22 23:27> Source: old records reviewed and nursing notes reviewed <ARIAS Moore - Last Filed: 04/11/22 23:27> Medical History: Medical History Asthma Diabetes High cholesterol Hypertension Pneumonia <Alexis Moise MD - Last Filed: 04/11/22 20:33> Social History Social History: Social History Household Members: Spouse Household Members Other:: 2 Housing: [facility] Alcohol intake: never Patient Tobacco Use Status: Never used Tobacco Advance Directives: No service: No Current occupational status: employed <Alexis Moise MD - Last Filed: 04/11/22 20:33> Physical Exam ED Vital Signs: Vital Signs - 24 hr 04/11/22 20:20 04/11/22 22:20 Temperature 98.6 F 97 F Pulse Rate 80 76 Respiratory Rate 18 18 Blood Pressure 126/84 166/79 H Pulse Oximetry 96 97 Oxygen Delivery Method Room Air Room Air BMI result Body Mass Index 29.8 <Alexis Moise MD - Last Filed: 04/11/22 20:33> Vital Signs - 24 hr 04/11/22 20:20 04/11/22 22:20 Temperature 98.6 F 97 F Pulse Rate 80 76 Respiratory Rate 18 18 Blood Pressure 126/84 166/79 H Pulse Oximetry 96 97 Oxygen Delivery Method Room Air Room Air BMI result Body Mass Index 29.8 Vital signs stable <ARIAS Moore - Last Filed: 04/11/22 23:27> Appearance: Alert.? Oriented X3.? No acute distress.? Head: Normocephalic, atraumatic, no step-offs or deformities Eyes: Pupils equal, round and reactive to light.? ENT: Pharynx normal.? Neck: Normal inspection.? Neck supple.? Negative Kernig and Brudzinski CVS: Normal heart rate and rhythm.? Pulses normal.? Respiratory: No respiratory distress.? Breath sounds normal.? Abdomen: Soft and nontender.? Skin: Skin warm and dry.? Normal skin color.? Normal skin turgor.? Extremities: No lower extremity edema.? No calf ttp. 5/5 strength to bilateral upper and lower extremities. 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 Neuro: Oriented X 3.? No motor deficit.? No sensory deficit. CN 2-12 intact . P atient ambulating with steady gait normal coordination. <ARIAS Moore - Last Filed: 04/11/22 23:27> Course Course Course Narrative: RME: 62-year-old male who presents emergency department for evaluation of occipital/neck pain x3 days. Patient states he woke up 3 days ago with pain in the right side of his head and neck. He states that the pain is gotten progressively worse and is now severe. The patient is having difficulty moving his head and neck secondary to the pain. He denies any injury. Denied systemic symptoms. Examination did reveal significant tenderness palpation of the dose of puddle scalp and right trapezius muscle. Patient has limited range of motion of his neck secondary to pain. I ordered a CT scan of the patient's head cervical spine. Patient's pain will be treated with Toradol 15 mg IV. <Alexis Moise MD - Last Filed: 04/11/22 20:33> Reevaluation(s) Reevaluation #1: CBC appears to be within normal limits. Chemistry with no acute electrolyte abnormalities requiring intervention. CT of that head and neck with no evidence of acute intracranial pathology. No acute fractures or traumatic subluxation of cervical spine. Likely cervical muscle spasms. Will re-evaluate patient at this time <ARIAS Moore - Last Filed: 04/11/22 23:27> Time: 23:20 <ARIAS Moore - Last Filed: 04/11/22 23:27> Reevaluation #2: Patient does or will not do a visual acuity patient able to read in front of him without difficulties. No blurred vision or changes in vision. No pain with eye movements. Unlikely acute closed angle glaucoma or wet macular degeneration. I went to go re-evaluate patient and he tells me this is the best he has been feeling since Saturday. Reports significant improvement. Patient will be dischar ge home with Toradol, muscle relaxers and Lidoderm patches. Patient does tell me that he had history of polyp removal, never history of sinusitis. I did discuss his CT scan results with him will give him follow-up with ENT. Given all this I suspect that this is likely musculoskeletal in nature. Educated patient on diagnosis and treatment plan, answered all question, patient verbalizes understanding. At this time patient will be discharged home, advised to return with new or worsening symptoms. Educated on worrisome signs and symptoms and when to return. At this time I feel comfortable discharge home. <ARIAS Moore - Last Filed: 04/11/22 23:27> Time: 23:26 <ARIAS Moore - Last Filed: 04/11/22 23:27> Medications Administered Discontinued Medications Generic Name Dose Route Start Last Admin Trade Name Freq PRN Reason Stop Dose Admin Ketorolac Tromethamine 15 mg 04/11/22 20:25 04/11/22 22:36 Ketorolac Tromethamine 15 Mg/Ml Vial IVPUSH 04/11/22 20:26 15 mg ONCE STA Administration Lidocaine 1 patch 04/11/22 22:36 04/11/22 22:41 Lidocaine 4 % Patch Adh..Patch TRANSDERMA 04/11/22 22:37 1 patch ONCE ONE Administration Protocol Morphine Sulfate 4 mg 04/11/22 22:36 04/11/22 22:42 Morphine Sulfate 4 Mg/Ml Cartridge IVPUSH 04/11/22 22:37 4 mg ONCE ONE Administration Protocol <Alexis Moise MD - Last Filed: 04/11/22 20:33> Medications Administered Discontinued Medications Generic Name Dose Route Start Last Admin Trade Name Gerald PRN Reason Stop Dose Admin Ketorolac Tromethamine 15 mg 04/11/22 20:25 04/11/22 22:36 Ketorolac Tromethamine 15 Mg/Ml Vial IVPUSH 04/11/22 20:26 15 mg ONCE STA Administration Lidocaine 1 patch 04/11/22 22:36 04/11/22 22:41 Lidocaine 4 % Patch Adh..Patch TRANSDERMA 04/11/22 22:37 1 patch ONCE ONE Administration Protocol Morphine Sulfate 4 mg 04/11/22 22:36 04/11/22 22:42 Morphine Sulfate 4 Mg/Ml Cartridge IVPUSH 04/11/22 22:37 4 mg ONCE ONE Administration Protocol <ARIAS Moore - Last Filed: 04/11/22 23:27> Medical Decision Making Medical Decision Making MDM Narrative: 2200 62-year-old male who presents emergency department for evaluation of occipital/neck pain, eye pressure x3 days. Physical exam with cervical paraspinous tenderness on palpation. No midline tenderness. No meningeal signs. Neuro nonfocal. Regular rate and rhythm. Lungs clear. Abdomen soft nontender nondistended. Tonometry done, I pressure on the left 14 pressure on the right 20 Likely severe cervical spasm. Unlikely epidural abscess, fractures/dislocation, stroke, posterior stroke, cord compression, meningitis or encephalitis. Plan basic labs, imaging. <ARIAS Moore - Last Filed: 04/11/22 23:27> Lab Data Result Diagrams: : 04/11/22 22:30 04/11/22 22:30 <Alexis Moise MD - Last Filed: 04/11/22 20:33> Labs: Lab Results 04/11/22 04/11/22 Range/Units 22:30 22:30 WBC 6.9 (4.8-10.8) X10*3/uL RBC 4.66 (4.60-5.80) X10*6/uL Hgb 14.1 (14.0-18.0) g/dl Hct 41.2 L (42.0-52.0) % MCV 88.4 (80.0-98.0) fL MCH 30.3 (27.0-33.0) pg MCHC 34.2 (31.0-36.0) g/dl RDW 12.7 (11.0-16.0) % Plt Count 191 D (160-400) X10*3/uL MPV 9.5 (9.4-12.4) fL Immature Gran % (Auto) 0.4 (0.0-0.4) % Neut % (Auto) 68.0 (45-73) % Lymph % (Auto) 18.1 L (20-40) % Whiteside % (Auto) 12.5 H (2-11) % Eos % (Auto) 0.4 (0-4) % Baso % (Auto) 0.6 (0-2) % Lymph # (Auto) 1.3 (1.2-4.9) X10*3/uL Whiteside # (Auto) 0.9 (0.1-1.2) X10*3/uL Eos # (Auto) 0.0 (0.0-0.4) X10*3/uL Baso # (Auto) 0.0 (0.0-0.2) X10*3/uL Abs Immat Gran (auto) 0.03 (0.00-0.03) X10*3/uL Absolute Neuts (auto) 4.7 (2.0-8.3) x10*3/uL Absolute Nucleated RBC 0.000 (0.0-0.012) X10*3/uL Nucleated RBC % (auto) 0.0 (0.0-0.2) /100WBC Sodium 137 (135-145) mmol/L Potassium 4.2 (3.3-5.1) mmol/L Chloride 104 (96-108) mmol/L Carbon Dioxide 26 (22-29) mmol/L Anion Gap 11 L (12-20) BUN 9 (9-16) mg/dL Creatinine 0.81 (0.5-1.4) mg/dL Estim Creat Clear Calc 94.8 Estimated GFR > 60 Random Glucose 282 H (60-115) mg/dL Calcium 8.4 (8.4-10.2) mg/dL Magnesium 1.7 (1.6-2.6) mg/dL Total Bilirubin 1.2 H (0.0-1.0) mg/dL AST 16 (5-37) U/L ALT 25 (0-40) U/L Alkaline Phosphatase 75 (39-117) U/L Total Protein 6.1 L (6.5-8.0) g/dL Albumin 3.8 (3.5-5.0) g/dL <Alexis Moise MD - Last Filed: 04/11/22 20:33> Lab Results 04/11/22 04/11/22 Range/Units 22:30 22:30 WBC 6.9 (4.8-10.8) X10*3/uL RBC 4.66 (4.60-5.80) X10*6/uL Hgb 14.1 (14.0-18.0) g/dl Hct 41.2 L (42.0-52.0) % MCV 88.4 (80.0-98.0) fL MCH 30.3 (27.0-33.0) pg MCHC 34.2 (31.0-36.0) g/dl RDW 12.7 (11.0-16.0) % Plt Count 191 D (160-400) X10*3/uL MPV 9.5 (9.4-12.4) fL Immature Gran % (Auto) 0.4 (0.0-0.4) % Neut % (Auto) 68.0 (45-73) % Lymph % (Auto) 18.1 L (20-40) % Whiteside % (Auto) 12.5 H (2-11) % Eos % (Auto) 0.4 (0-4) % Baso % (Auto) 0.6 (0-2) % Lymph # (Auto) 1.3 (1.2-4.9) X10*3/uL Whiteside # (Auto) 0.9 (0.1-1.2) X10*3/uL Eos # (Auto) 0.0 (0.0-0.4) X10*3/uL Baso # (Auto) 0.0 (0.0-0.2) X10*3/uL Abs Immat Gran (auto) 0.03 (0.00-0.03) X10*3/uL Absolute Neuts (auto) 4.7 (2.0-8.3) x10*3/uL Absolute Nucleated RBC 0.000 (0.0-0.012) X10*3/uL Nucleated RBC % (auto) 0.0 (0.0-0.2) /100WBC Sodium 137 (135-145) mmol/L Potassium 4.2 (3.3-5.1) mmol/L Chloride 104 (96-108) mmol/L Carbon Dioxide 26 (22-29) mmol/L Anion Gap 11 L (12-20) BUN 9 (9-16) mg/dL Creatinine 0.81 (0.5-1.4) mg/dL Estim Creat Clear Calc 94.8 Estimated GFR > 60 Random Glucose 282 H (60-115) mg/dL Calcium 8.4 (8.4-10.2) mg/dL Magnesium 1.7 (1.6-2.6) mg/dL Total Bilirubin 1.2 H (0.0-1.0) mg/dL AST 16 (5-37) U/L ALT 25 (0-40) U/L Alkaline Phosphatase 75 (39-117) U/L Total Protein 6.1 L (6.5-8.0) g/dL Albumin 3.8 (3.5-5.0) g/dL <ARIAS Moore - Last Filed: 04/11/22 23:27> Critical Care Time Critical Care Time Critical Care Time: No <ARIAS Moore - Last Filed: 04/11/22 23:27> Discharge Plan Discharge Clinical Impression: Cervical paraspinous muscle spasm <Alexis Moise MD - Last Filed: 04/11/22 20:33> Patient Disposition: Home, Self-Care <Alexis Moise MD - Last Filed: 04/11/22 20:33> Additional Instructions: Take your medications as prescribed. If you were prescribed antibiotics today, it is important that you take your medication to their entirety, do not skip any doses, do not finish them early. Follow-up with your primary care provider this week. Return to the emergency department with new or worsening symptoms. Such as fevers, chills, chest pain, shortness of breath, nausea, vomiting, dizziness, headache, vision changes, lethargy In case of emergency call 911 Cyclobenzaprine as a muscle relaxer, it can make you sleepy and drowsy, please do not take this driving operating machinery. Please do not take Toradol with any other NSAIDs. Do not drink while taking this medications. Side effects include GI bleeding, kidney dysfunction. CT/CT head/brain and cervical spine wo IV con IMPRESSION: No evidence for acute intracranial pathology. ? No acute fracture or traumatic subluxation of the cervical spine. ? Extensive changes within the paranasal sinuses and nasal cavity, presumably postsurgical, related to chronic sinusitis. There continues to be polypoid mucosal thickening, and fluid/secretions within the sinuses. Recommend correlation with history of prior surgery. If there is no such history, then this appearance may be due to a more aggressive process with bony erosion, which would warrant further evaluation. <Alexis Moise MD - Last Filed: 04/11/22 20:33> Prescriptions: New cyclobenzaprine 10 mg tablet 10 mg PO BEDTIME PRN (Reason: muscle spasm) Qty: 7 0RF ketorolac 10 mg tablet 10 mg PO TID PRN (Reason: pain) 5 Days Qty: 15 0RF Rx Instructions: Tolerated IM in the department lidocaine 5 % adhesive patch,medicated 1 patch topical DAILY PRN (Reason: pain) Qty: 15 0RF Rx Instructions: leave on most painful area for up to 12 hrs No Action atorvastatin 40 mg tablet 1 tab PO DAILY Lantus U-100 Insulin 100 unit/mL solution 44 unit subcut BEDTIME albuterol sulfate 90 mcg/actuation HFA aerosol inhaler 2 puff PO Q4H PRN (Reason: wheezing) lisinopril 40 mg tablet 1 tab PO DAILY budesonide-formoterol [Symbicort] 160-4.5 mcg/actuation HFA aerosol inhaler 2 puff PO BID Trulicity 1.5 mg/0.5 mL pen injector 1.5 mg subcut QWEEK Xolair 75 mg/0.5 mL syringe 75 mg subcut Q2W Xolair 150 mg/mL syringe 150 mg subcut Q2W tamsulosin 0.4 mg Capsule 0.4 mg PO BEDTIME Qty: 30 0RF cefuroxime axetil 500 mg tablet 500 mg PO Q12H Qty: 10 0RF prednisone 20 mg tablet 40 mg PO DAILY Qty: 10 0RF levofloxacin 750 mg tablet 750 mg PO DAILY Qty: 14 0RF codeine-guaifenesin [Guaifenesin AC] 10-100 mg/5 mL liquid 10 ml PO Q4-6H PRN (Reason: cough) Qty: 120 0RF benzonatate 200 mg capsule 200 mg PO TID PRN (Reason: cough) Qty: 30 0RF <Alexis Moise MD - Last Filed: 04/11/22 20:33> Referrals: Physician,Vickie J [Primary Care Provider] - 2 days Zia Cosby [Physician] - 2 days <Alexis Moise MD - Last Filed: 04/11/22 20:33> Stand Alone Forms: Work/School Release <Alexis Moise MD - Last Filed: 04/11/22 20:33>
[2022-04-11 22:20] VITALS: BP 166/79; PULSE 76; RESP 18; TEMP 36.1; O2SAT 97
--- NOTE | 2022-04-11 22:22 | MHC.EDTECH ---
while doing vitals pt states alot of pain 10+
--- NOTE | 2022-04-11 22:24 | MHC.EDTECH ---
cant do eye exam pt wears glasses but they are at home
[2022-04-11] MEDS: Ketorolac Tromethamine 15 MG/ML VIAL IVPUSH (22:36)
[2022-04-11] MEDS: Lidocaine 4 % Patch ADH..PATCH 1 PATCH TRANSDERMA (22:41)
[2022-04-11 22:42] LABS: Basophils Percent Auto 0.6 % (0-2); Eosinophils Percent Auto 0.4 % (0-4); Hematocrit 41.2 % (42.0-52.0); Hemoglobin 14.1 g/dl (14.0-18.0); Imm Gran Abs Auto 0.03 X10*3/uL (0.00-0.03); Imm Gran Pct Auto 0.4 % (0.0-0.4); Lymphocytes Absolute Auto 1.3 X10*3/uL (1.2-4.9); Lymphocytes Percent Auto 18.1 % (20-40); MANUAL DIFF FLAG NO; Mean Corpuscular HGB Conc 34.2 g/dl (31.0-36.0); Mean Corpuscular Hemoglobin 30.3 pg (27.0-33.0); Mean Corpuscular Volume 88.4 fL (80.0-98.0); Mean Platelet Volume 9.5 fL (9.4-12.4); Monocytes Absolute Auto 0.9 X10*3/uL (0.1-1.2); Monocytes Percent Auto 12.5 % (2-11); Neutrophils Absolute Auto 4.7 x10*3/uL (2.0-8.3); Platelet Count 191 X10*3/uL (160-400); Red Blood Count 4.66 X10*6/uL (4.60-5.80); Red Cell Distribution Width 12.7 % (11.0-16.0); White Blood Count 6.9 X10*3/uL (4.8-10.8)
[2022-04-11] MEDS: Morphine Sulfate 4 MG/ML CARTRIDGE IVPUSH (22:42)
[2022-04-11 22:56] LABS: Alanine Aminotransferase 25 U/L (0-40); Albumin Level 3.8 g/dL (3.5-5.0); Alkaline Phosphatase 75 U/L (39-117); Anion Gap 11 (12-20); Aspartate Amino Transferase 16 U/L (5-37); Bilirubin Total 1.2 mg/dL (0.0-1.0); Blood Urea Nitrogen 9 mg/dL (9-16); Calcium 8.4 mg/dL (8.4-10.2); Carbon Dioxide 26 mmol/L (22-29); Chloride 104 mmol/L (96-108); Creatinine Clr Calc Pharmacy 94.8; Estimated Glomerular Filt Rate > 60; Glucose Random 282 mg/dL (60-115); Magnesium 1.7 mg/dL (1.6-2.6); Potassium 4.2 mmol/L (3.3-5.1); Sodium 137 mmol/L (135-145); Total Protein 6.1 g/dL (6.5-8.0)
[2022-04-12 00:26] VITALS: BP 139/72; PULSE 69; RESP 16; O2SAT 98
== END 2022-04-12 00:27 | disposition home or self-care (01) ==
PROVIDERS: Physician Assistant; Emergency Provider Emergency Medicine
DX: M62.838 Other muscle spasm (principal); M54.2 Cervicalgia; E11.9 Type 2 diabetes mellitus without complications; I10 Essential (primary) hypertension; E78.5 Hyperlipidemia, unspecified; Z79.02 Long term (current) use of antithrombotics/antiplatelets; Z79.899 Other long term (current) drug therapy; Z79.4 Long term (current) use of insulin
CPT/HCPCS: 36415; 70450; 72125; 80053; 83735; 85025; 96374; 96375; 99284; J1885; J2270